=== PATIENT | female | born 1985 ===

== ENCOUNTER 2020-02-28 14:42 | Outpatient (REF) | payer OTHER, SELFPAY | END 2020-02-28 14:43 | disposition home or self-care (01) | LOC: HO.LAB 14:42 | PROVIDERS: PCP Internal Medicine; Visit Provider Internal Medicine | DX: Z20.828 Contact with and (suspected) exposure to other viral communicable diseases (principal) | CPT/HCPCS: 87635 ==

== ENCOUNTER 2020-04-08 11:39 | Outpatient (REF) | payer OTHER, SELFPAY ==
[2020-04-08 14:45] LABS: Free T4 (Free Thyroxine) 0.88 ng/dL (0.71-1.85); Thyroid Stimulating Hormone 0.68 uIU/mL (0.32-4.0)
[2020-04-09 14:47] LABS: Follicle Stimulating Hormone 3.5 mIU/mL
[2020-04-12 22:11] LABS: Estrogen 287.1 pg/mL
[2020-04-15 23:08] LABS: Estradiol Free 1.95 pg/mL; Estradiol, Ultrasensitive 76 pg/mL
== END 2020-04-08 11:40 | disposition home or self-care (01) ==
LOC: HO.10HDL 11:39
PROVIDERS: Visit Provider Internal Medicine Endocrinology, Diabetes & Metabolism
DX: E22.1 Hyperprolactinemia (principal)
CPT/HCPCS: 82670; 82672; 83001; 83002; 84146; 84439; 84443

== ENCOUNTER → 2020-04-17 10:30 | Outpatient (BNVA) | payer OTHER, SELFPAY | PROVIDERS: PCP Internal Medicine; Referring Provider Internal Medicine; Visit Provider Internal Medicine Endocrinology, Diabetes & Metabolism | DX: E22.1 Hyperprolactinemia (principal); E06.3 Autoimmune thyroiditis; E04.2 Nontoxic multinodular goiter; L68.0 Hirsutism; E66.01 Morbid (severe) obesity due to excess calories; Z68.41 Body mass index [BMI] 40.0-44.9, adult; Z71.3 Dietary counseling and surveillance | CPT/HCPCS: 99212 ==

== ENCOUNTER 2020-06-10 08:47 | Outpatient (REF) | payer OTHER, SELFPAY ==
[2020-06-13 05:57] LABS: HPV mRNA E6/E7 rflx Not Detected (Not Detected)
== END 2020-06-10 08:48 | disposition home or self-care (01) ==
LOC: HO.LAB 08:47
PROVIDERS: PCP Internal Medicine; Visit Provider Advanced Practice Midwife
DX: Z01.419 Encounter for gynecological examination (general) (routine) without abnormal findings (principal); E66.01 Morbid (severe) obesity due to excess calories; Z68.39 Body mass index [BMI] 39.0-39.9, adult; Z31.9 Encounter for procreative management, unspecified
CPT/HCPCS: 36415; 87624; 88142

== ENCOUNTER 2020-06-15 14:59 | Emergency (ER) | payer OTHER, SELFPAY ==
[2020-06-15 16:24] VITALS: BP 177/93; PULSE 77; RESP 16; TEMP 36.6; O2SAT 98; BMI 34.3
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
[2020-06-15 20:39] LABS: Glucose Urine UA NEG (NEG); Leukocyte Esterase Urine NEG (NEG); Nitrite Urine NEG (NEG); PH 6.5 (5.0-8.0); Specific Gravity - Urine 1.015 (1.005-1.025); Urine Blood NEG (NEG); Urine Ketones NEG (NEG); Urine Protein NEG (NEG-TRACE)
[2020-06-15 20:40] LABS: Appearance Urine CLEAR; Color Urine YELLOW
[2020-06-15 20:42] LABS: UPreg QC Valid YES; Urine Pregnancy NEGATIVE (NEGATIVE)
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
[2020-06-15 20:50] VITALS: BP 146/85; PULSE 91; RESP 20; TEMP 36.4; O2SAT 97
--- NOTE | 2020-06-15 20:50 | ECG_ITS ---
Test Reason : CHEST PAIN Blood Pressure : / mmHG Vent. Rate : 079 BPM Atrial Rate : 079 BPM P-R Int : 150 ms QRS Dur : 092 ms QT Int : 384 ms P-R-T Axes : 049 018 -07 degrees QTc Int : 440 ms Normal sinus rhythm Moderate voltage criteria for LVH, may be normal variant T wave abnormality, consider inferior ischemia Abnormal ECG When compared with ECG of 22-NOV-2016 15:57, No significant change was found Referred By: Tasneem Bell Electronically Signed By:LUIS ALBERTO MD
[2020-06-15 21:03] LABS: Amphetamine Screen Urine Not Detected (Not Detect); Barbiturates, Urine Not Detected (Not Detect); Benzodiazepines Screen Urine Not Detected (Not Detect); Cannabinoid Screen Urine Not Detected (Not Detect); Cocaine Screen Urine Not Detected (Not Detect); Opiate Screen Urine Not Detected (Not Detect); Phencyclidine Screen Urine Not Detected (Not Detect)
[2020-06-15 21:27] VITALS: PULSE 86
[2020-06-15] MEDS: Acetaminophen 325 MG TABLET 975 MG PO (21:44)
[2020-06-15 22:00] VITALS: BP 138/65; PULSE 91; RESP 20; TEMP 36.4; O2SAT 97
== END 2020-06-15 22:14 | disposition home or self-care (01) ==
PROVIDERS: Physician Assistant; Emergency Provider Emergency Medicine Emergency Medical Services
DX: S06.0X1A Concussion with loss of consciousness of 30 minutes or less, initial encounter (principal); S63.501A Unspecified sprain of right wrist, initial encounter; V47.5XXA Car driver injured in collision with fixed or stationary object in traffic accident, initial encounter; Y93.89 Activity, other specified; Y92.411 Interstate highway as the place of occurrence of the external cause; Y99.9 Unspecified external cause status
CPT/HCPCS: 36415; 70450; 72125; 73110; 80307; 81003; 81025; 93005; 99284; 99285

== ENCOUNTER 2020-06-29 13:48 | Outpatient (REF) | payer OTHER, SELFPAY ==
[2020-06-30 08:14] LABS: BV Int Neg Control Negative (Negative); BV Int Pos Control Positive (Positive)
== END 2020-06-29 13:49 | disposition home or self-care (01) ==
LOC: HO.LNP 13:48
PROVIDERS: Visit Provider Hospitalist
DX: N76.0 Acute vaginitis (principal)
CPT/HCPCS: 87480; 87510; 87660

== ENCOUNTER 2020-07-14 10:34 | Outpatient (REF) | payer OTHER, SELFPAY ==
[2020-07-15 09:10] LABS: BV Int Neg Control Negative (Negative); BV Int Pos Control Positive (Positive)
[2020-07-15 20:37] LABS: C. trachomatis RNA TMA NOT DETECTED (NOT DETECTED); N. gonorrhoeae RNA TMA NOT DETECTED (NOT DETECTED)
== END 2020-07-14 10:35 | disposition home or self-care (01) ==
LOC: HO.LAB 10:34
PROVIDERS: Visit Provider Advanced Practice Midwife
DX: N76.0 Acute vaginitis (principal)
CPT/HCPCS: 36415; 87480; 87491; 87510; 87591; 87660; 99212

== ENCOUNTER 2020-09-09 16:55 | Outpatient (REF) | payer OTHER, SELFPAY ==
[2020-09-09 18:48] LABS: Free T4 (Free Thyroxine) 0.97 ng/dL (0.71-1.85); Thyroid Stimulating Hormone 0.94 uIU/mL (0.32-4.0)
[2020-09-10 03:37] LABS: CT PCR NOT DETECTED (Not Detect.); NG PCR NOT DETECTED (Not Detect.)
[2020-09-10 08:11] LABS: Follicle Stimulating Hormone 7.6 mIU/mL; Lutenizing Hormone 8.7 mIU/mL; Prolactin 3.5 ng/mL
[2020-09-12 22:47] LABS: Estradiol Ultra Sensitive 46 pg/mL
== END 2020-09-09 16:56 | disposition home or self-care (01) ==
LOC: HO.LAB 16:55
PROVIDERS: Absent Provider Advanced Practice Midwife; PCP Internal Medicine; Visit Provider Internal Medicine Endocrinology, Diabetes & Metabolism
DX: N76.0 Acute vaginitis (principal); E22.1 Hyperprolactinemia
CPT/HCPCS: 36415; 82670; 83001; 83002; 84146; 84439; 84443; 87491; 87591

== ENCOUNTER → 2020-09-22 08:32 | Outpatient (BNVA) | payer OTHER, SELFPAY | PROVIDERS: PCP Internal Medicine; Visit Provider Internal Medicine Endocrinology, Diabetes & Metabolism | DX: E06.3 Autoimmune thyroiditis (principal); E04.2 Nontoxic multinodular goiter; L68.0 Hirsutism; E66.01 Morbid (severe) obesity due to excess calories | CPT/HCPCS: 99212 ==

== ENCOUNTER 2020-10-01 14:55 | Outpatient (REF) | payer OTHER, SELFPAY | END 2020-10-01 14:56 | disposition home or self-care (01) | LOC: HO.LNP 14:55 | PROVIDERS: Visit Provider Internal Medicine | DX: R43.9 Unspecified disturbances of smell and taste (principal); Z11.9 Encounter for screening for infectious and parasitic diseases, unspecified; Z20.822 Contact with and (suspected) exposure to COVID-19 | CPT/HCPCS: U0003; U0005 ==

== ENCOUNTER 2020-10-06 13:55 | Outpatient (REF) | payer OTHER, SELFPAY ==
[2020-10-07 13:46] LABS: BV Int Neg Control Negative (Negative); BV Int Pos Control Positive (Positive)
== END 2020-10-06 13:56 | disposition home or self-care (01) ==
LOC: HO.LAB 13:55
PROVIDERS: PCP Internal Medicine; Visit Provider Advanced Practice Midwife
DX: N76.0 Acute vaginitis (principal)
CPT/HCPCS: 81025; 87480; 87510; 87660; 99212

== ENCOUNTER 2020-11-11 08:04 | Outpatient (REF) | payer OTHER, SELFPAY ==
[2020-11-11 11:15] LABS: Free T4 (Free Thyroxine) 1.07 ng/dL (0.71-1.85); Thyroid Stimulating Hormone 0.79 uIU/mL (0.32-4.0)
[2020-11-12 07:51] LABS: Prolactin 8.5 ng/mL
== END 2020-11-11 08:05 | disposition home or self-care (01) ==
LOC: HO.10HDL 08:04
PROVIDERS: Visit Provider Internal Medicine Endocrinology, Diabetes & Metabolism
DX: E22.1 Hyperprolactinemia (principal); E04.2 Nontoxic multinodular goiter
CPT/HCPCS: 36415; 84146; 84439; 84443

== ENCOUNTER → 2020-11-19 08:57 | Outpatient (BNVA) | payer OTHER, SELFPAY | PROVIDERS: PCP Internal Medicine; Visit Provider Internal Medicine Endocrinology, Diabetes & Metabolism ==

== ENCOUNTER 2021-02-25 08:50 | Outpatient (REF) | payer OTHER, SELFPAY ==
[2021-02-25 10:57] LABS: Thyroid Stimulating Hormone 0.79 uIU/mL (0.32-4.0)
[2021-02-26 17:27] LABS: Prolactin 6.9 ng/mL
== END 2021-02-25 08:51 | disposition home or self-care (01) ==
LOC: HO.10HDL 08:50
PROVIDERS: Visit Provider Internal Medicine Endocrinology, Diabetes & Metabolism
DX: E04.2 Nontoxic multinodular goiter (principal); E22.1 Hyperprolactinemia
CPT/HCPCS: 36415; 84146; 84439; 84443

== ENCOUNTER → 2021-03-18 09:00 | Outpatient (BNVA) | payer OTHER, SELFPAY | PROVIDERS: PCP Internal Medicine; Visit Provider Internal Medicine | DX: E06.3 Autoimmune thyroiditis (principal); E22.1 Hyperprolactinemia; E55.9 Vitamin D deficiency, unspecified; L68.0 Hirsutism; Z79.899 Other long term (current) drug therapy | CPT/HCPCS: 99212 ==

== ENCOUNTER 2021-04-06 09:47 | Outpatient (REF) | payer OTHER, SELFPAY ==
--- NOTE | ~2021-04-06 | MR_ITS ---
EXAMINATION: MR BRAIN WITHOUT AND WITH CONTRAST CLINICAL INFORMATION: Hyperprolactinemia. COMPARISON: Brain MRI dated 02/10/2020. TECHNIQUE: Multiplanar, multisequential imaging was obtained without and with intravenous administration of contrast. Intravenous contrast: Gadavist 5 mL. FINDINGS: No abnormal focus of decreased differential enhancement is seen within the pituitary gland. There is some mild asymmetric fullness in the right anterolateral aspect of the pituitary gland with a slightly convex margin superiorly, also evident on the prior study. The infundibulum is midline. The cavernous sinuses opacify symmetrically. The internal carotid artery flow voids are maintained. No diffusion abnormalities are identified to suggest an acute or subacute infarct. The ventricles are normal in size. No mass effect or midline shift is seen. A nonspecific subcentimeter focus of T2 hyperintense signal change in the dorsal right basal ganglia is again visible, though less conspicuous. There is incidental 9 mm homogeneous pineal cyst. No extra-axial fluid collections are noted. The brainstem and cerebellum are normal. On postcontrast imaging, there is no abnormal parenchymal or leptomeningeal enhancement. The craniovertebral junction, marrow signal, and midline structures are normal. The mastoid air cells are well aerated. There is mild posterior right maxillary sinus mucosal thickening. MR/MR head/brain wo/w con IMPRESSION: Stable mild asymmetric soft tissue fullness of the right anterolateral pituitary gland without a discrete visible lesion. The possibility of an underlying microadenoma is not excluded. Nonspecific subcentimeter focus of signal change in the dorsal right basal ganglia, less conspicuous as compared to the prior study. No acute intracranial process.
== END 2021-04-06 09:48 | disposition home or self-care (01) ==
LOC: HO.MRI 09:47
PROVIDERS: Visit Provider Internal Medicine
DX: E22.1 Hyperprolactinemia (principal)
CPT/HCPCS: 70553; A9585

== ENCOUNTER 2021-04-15 10:06 | Outpatient (REF) | payer OTHER, SELFPAY ==
--- NOTE | ~2021-04-15 | XR_ITS ---
EXAMINATION: XR CHEST CLINICAL INFORMATION: J40 - Bronchitis, not specified as acute or chronic COMPARISON: Chest radiographs 05/16/2013 TECHNIQUE: 2 views of the chest were obtained. FINDINGS: The lungs are clear. There is no airspace consolidation or groundglass opacity. No coarsening of the bronchiolar markings appreciated on plain film. The costophrenic sulci are clear. Heart is within limits of normal size. The hilar and mediastinal contours are normal. No acute bony abnormality. XR/XR chest 2V IMPRESSION: Unremarkable examination.
== END 2021-04-15 10:07 | disposition home or self-care (01) ==
LOC: HO.HMGCX 10:06
PROVIDERS: PCP Internal Medicine; Visit Provider Physician Assistant Medical
DX: J40 Bronchitis, not specified as acute or chronic (principal)
CPT/HCPCS: 71046

== ENCOUNTER 2021-04-15 11:05 | Outpatient (REF) | payer OTHER, SELFPAY ==
[2021-04-15 12:11] LABS: Influenza A PCR NEGATIVE (Negative); Influenza B PCR NEGATIVE (Negative); Resp Syncy Virus RNA Qual PCR NEGATIVE (Negative); SARS COV2 PCR INHOUSE NEGATIVE (Negative)
== END 2021-04-15 11:06 | disposition home or self-care (01) ==
LOC: HO.LNP 11:05
PROVIDERS: Visit Provider Physician Assistant Medical
DX: Z20.822 Contact with and (suspected) exposure to COVID-19 (principal); J40 Bronchitis, not specified as acute or chronic
CPT/HCPCS: 0241U

== ENCOUNTER 2021-04-20 08:36 | Outpatient (REF) | payer OTHER, SELFPAY ==
[2021-04-20 09:29] LABS: Anion Gap 14 (12-20); Blood Urea Nitrogen 12 mg/dL (9-16); Calcium 9.3 mg/dL (8.4-10.2); Carbon Dioxide 23 mmol/L (22-29); Chloride 107 mmol/L (96-108); Estimated Glomerular Filt Rate > 60; Glucose Random 83 mg/dL (60-115); Potassium 3.9 mmol/L (3.3-5.1); Sodium 140 mmol/L (135-145)
[2021-04-20 09:33] LABS: Osmolality, Serum 287 mosm/kg (281-305)
[2021-04-20 09:51] LABS: Free T4 (Free Thyroxine) 1.11 ng/dL (0.71-1.85); HCG Quantitative 87 mIU/mL; Thyroid Stimulating Hormone 1.18 uIU/mL (0.32-4.0); Vitamin D 25-OH Total 18.6 ng/mL (>30)
[2021-04-20 10:56] LABS: Cortisol Random 8.7 ug/dL
[2021-04-21 13:55] LABS: Triiodothyronine T3 Total 104 ng/dL (76-181)
[2021-04-21 17:46] LABS: DHEA Sulfate 98 mcg/dL (23-266); Sex Hormone Binding Globulin 23 nmol/L (17-124)
[2021-04-21 21:37] LABS: Adrenocorticotropic Hormone 34 pg/mL (6-50)
[2021-04-22 07:52] LABS: Follicle Stimulating Hormone 2.8 mIU/mL; Lutenizing Hormone 5.1 mIU/mL; Prolactin Undiluted 12.4 ng/mL
[2021-04-23 14:32] LABS: IGF-1 (Somatomedin C) 189 ng/mL (53-331); IGF-1 Z Score (Female) 0.6 SD (-2.0 - +2.0)
[2021-04-24 15:51] LABS: Testosterone, Total 103 ng/dL (2-45)
[2021-04-27 15:52] LABS: Androstenedione 331 ng/dL
[2021-04-29 23:16] LABS: Estradiol Free 5.14 pg/mL; Estradiol, Ultrasensitive 229 pg/mL
== END 2021-04-20 08:37 | disposition home or self-care (01) ==
LOC: HO.10HDL 08:36
PROVIDERS: Visit Provider Internal Medicine
DX: E22.1 Hyperprolactinemia (principal); E55.9 Vitamin D deficiency, unspecified; L68.0 Hirsutism
CPT/HCPCS: 36415; 80048; 82024; 82157; 82306; 82533; 82627; 82670; 82681; 83001; 83002; 83498; 83930; 84146; 84270; 84305; 84402; 84403; 84439; 84443; 84480; 84702

== ENCOUNTER 2021-04-29 17:14 | Outpatient (REF) | payer OTHER, SELFPAY ==
[2021-04-29 18:54] LABS: HCG Quantitative 4257 mIU/mL
== END 2021-04-29 17:15 | disposition home or self-care (01) ==
LOC: HO.LAB 17:14
PROVIDERS: PCP Internal Medicine; Visit Provider Family Medicine
DX: Z33.1 Pregnant state, incidental (principal)
CPT/HCPCS: 36415; 84702

== ENCOUNTER 2021-04-30 08:55 | Emergency (ER) | payer OTHER, SELFPAY ==
--- NOTE | ~2021-04-30 | US_ITS ---
EXAMINATION: US OBSTETRICAL ULTRASOUND CLINICAL INFORMATION: Vaginal bleeding. Positive test. COMPARISON: None. LMP: 02/14/2021. Gestational age by maternal dates is 6 weeks 5 days. Estimated date of delivery by maternal dates is 12/19/2021. TECHNIQUE: Transabdominal and transvaginal first trimester OB ultrasound FINDINGS: The uterus measures 9 x 5 x 5.8 cm in dimension. No focal uterine lesion is seen. There is a uterine gestational sac and yolk sac. Mean sac diameter measures 0.84 cm suggesting gestational age of 5 weeks 3 days. No pole is seen. No subchorionic hemorrhage is seen. The ovaries are normal appearing. The right ovary measures 3.7 x 2.3 x 2.2 cm. Left ovary measures 3.3 x 2.3 x 2.7 cm. There is a small amount of fluid in the pelvis. US/US OB transvaginal IMPRESSION: Intrauterine gestational sac and yolk sac. No pole seen. Mean sac diameter suggests gestational age of 5 weeks 3 days. No subchorionic hemorrhage is seen.
--- NOTE | ~2021-04-30 | US_ITS ---
EXAMINATION: US OBSTETRICAL ULTRASOUND CLINICAL INFORMATION: Vaginal bleeding. Positive test. COMPARISON: None. LMP: 02/14/2021. Gestational age by maternal dates is 6 weeks 5 days. Estimated date of delivery by maternal dates is 12/19/2021. TECHNIQUE: Transabdominal and transvaginal first trimester OB ultrasound FINDINGS: The uterus measures 9 x 5 x 5.8 cm in dimension. No focal uterine lesion is seen. There is a uterine gestational sac and yolk sac. Mean sac diameter measures 0.84 cm suggesting gestational age of 5 weeks 3 days. No pole is seen. No subchorionic hemorrhage is seen. The ovaries are normal appearing. The right ovary measures 3.7 x 2.3 x 2.2 cm. Left ovary measures 3.3 x 2.3 x 2.7 cm. There is a small amount of fluid in the pelvis. US/US OB <= 14 weeks fetus IMPRESSION: Intrauterine gestational sac and yolk sac. No pole seen. Mean sac diameter suggests gestational age of 5 weeks 3 days. No subchorionic hemorrhage is seen.
[2021-04-30 09:02] VITALS: BP 151/87; PULSE 65; RESP 18; TEMP 36.7; O2SAT 100; BMI 40.5
--- NOTE | 2021-04-30 10:05 | ED.PREGNANCY ---
HPI - General Chief complaint: Vaginal Bleeding Stated complaint: Multiple complaints () Time Seen by Provider: 04/30/21 09:32 Source: patient Mode of arrival: ambulatory Limitations: no limitations History of Present Illness HPI Narrative: 35-year-old female with a history of Kevon's, schizophrenia here with reports of some suprapubic pressure with some vaginal bleeding since last evening. Patient tells me she took a test this week at home which was positive. She is [id number]. Her last menstrual cycle was March 14. She sexually active in her and her partner are trying to conceive. She is not on any contraception. She tells me the last after we using the bathroom she wiped and noted some blood on the toilet paper. This continued this morning. Patient denies bleeding requiring a pad or panty liner. She has no abdominal pain or cramping. No back pain, vomiting or fevers or chills. Patient is also complaining of some right-sided neck discomfort which she has had for several weeks. Seen at a walk-in center yesterday and told it was either tension-related or muscular. Patient tells me the pain is still there. Pain is worsened with movement of the head. There was no known injury or trauma. No associated upper extremity weakness or paresthesias. Patient has not had any care Related Data Previous Rx's Medication Instructions Recorded vits no.130-ferrous fum 1 tab PO DAILY #30 tab 10/06/20 27 mg iron-folic acid 800 mcg tablet ( Vitamin) inhalational spacing device (Space #1 ea 01/26/21 Chamber) albuterol sulfate 90 mcg/actuation 2 inh INHALATION Q4-6H PRN #1 ea 03/28/21 breath activated powder inhaler (ProAir RespiClick) diclofenac sodium 1 % topical gel 2 g TOPICAL QID 7 Days #100 g 04/29/21 Allergies Allergy/AdvReac Type Severity Reaction Status Date / Time latex [LATEX] Allergy Mild SWELL Verified 04/30/21 09:02 Review of Systems Review of Systems: Yes all other systems are reviewed and are negative Constitutional: Constitutional: Reports no additional constitutional complaints, Denies body ache(s), Denies chills, Denies fever(s), Denies headache(s) and Denies weakness Eyes: Eyes: Reports no additional eye complaints and Denies change in vision ENT: Reports system reviewed and no additional complaints, except as documented, Denies dizziness, Denies headache(s), Denies nasal congestion, Denies nasal discharge and Reports neck pain Cardiovascular: Cardiovascular: Reports no additional cardiovascular complaints, Denies chest pain, Denies leg edema and Denies dyspnea Respiratory: Respiratory: Reports no additional respiratory complaints, Denies cough and Denies dyspnea Gastrointestinal: Gastrointestinal: Reports no additional gastrointestinal complaints, Denies abdominal pain, Denies diarrhea, Denies nausea and Denies vomiting Genitourinary: Genitourinary: Reports no additional female genitourinary complaints, Reports abnormal vaginal bleeding and Denies urinary incontinence Musculoskeletal: Musculoskeletal: Reports no additional musculoskeletal complaints, Denies back pain, Denies arthralgias, Denies joint swelling, Reports neck pain, Denies numbness and Denies tingling Integumentary/Breasts: Skin/Breast: Reports system reviewed and no additional complaints, except as docu and Denies rash Neurologic: Reports system reviewed and no additional complaints, except as documented, Denies Abnormal speech present, Denies dizziness, Denies headache(s), Denies numbness, Denies tingling and Denies weakness PMFSH Past Medical History Attestation statement: The following information was validated with the patient. Source: old records reviewed and nursing notes reviewed Medical History Kevon's disease Hirsutism Hyperprolactinemia Morbid obesity Non-toxic multinodular goiter Pineal gland cyst Schizophrenia Vitamin D deficiency Surgical History Hx of cornea transplant Family History Family History Father No problems noted. Mother No problems noted. Social History Social History Alcohol intake: unknown Patient Tobacco Use Status: Never used Tobacco Use of substances other than those prescribed or required for medical reasons: No Advance Directives: No Advance Directives Information Provided: No Gender identity: Female Physical Exam Vital Signs: Vital Signs: Last Vital Signs Temp 98.0 F 04/30/21 09:02 Pulse 65 04/30/21 09:02 Resp 18 12/17/21 09:02 BP 151/87 H 04/30/21 09:02 Pulse Ox 100 04/30/21 09:02 BMI result Body Mass Index 40.5 Const: General: cooperative, healthy appearing, comfortable and no acute distress Orientation/consciousness: patient oriented x3 Limitations: no limitations HENMT: Head: Yes normal to inspection Ears: hearing grossly normal bilaterally General nose exam: Normal external nose present Face and sinus: Yes normal facial exam Mouth: Normal oral and palatal mucosa present Throat: Yes posterior oropharynx normal Eyes: General: appearance normal, both eyes and all related structures Pupils: Equal, round and reactive pupils present Neck: Other: Right trapezius tender to palpate. Palpable muscle spasm noted. No swelling, ecchymosis, deformity. No midline tenderness, step-offs. Patient has full range of motion of the neck with no difficulty. Neck: Yes normal visual inspection, Yes no lymphadenopathy and Yes no meningeal signs Chest: Chest palpation & inspection: normal inspection of the chest Resp: Effort & Inspection: normal respiratory effort Auscultation: clear to auscultation bilaterally Cardio: Rate: regular rate Rhythm: regular rhythm Peripheral pulses: Peripheral pulses 2+ throughout GI: Inspection: Yes normal to inspection Palpation (GI): Soft to palpation and nontender Auscultation: normal bowel sounds Back/Spine/Pelvis: Thoracic/Lumbar Spine: thoracic and lumbar spine normal to inspection Skin: General skin exam: no rashes or lesions noted Neuro: General: patient oriented x3, no meningeal signs, no focal motor deficits and normal sensation to monofilament Cranial nerves: Yes Equal, round and reactive pupils present Cognition (Neuro): normal cognition Speech: No Abnormal speech present Gait exam (Neuro): Normal gait present Motor exam (neuro): 5/5 motor strength present throughout Extrem: General: Yes normal to inspection Course Course Course Narrative: 35-year-old female here with multiple complaints. Patient is she took a test at home is week which is positive. Last night she started to have some vaginal bleeding which was noted only after urinating with wiping. This is not associated with any pain. Will require labs, UA, Rh factor. In addition patient is complaining of some atraumatic right-sided neck pain. On exam the patient has pain over the trapezius with palpable spasm beers feels more muscular. Full range of motion with no meningeal signs or lymphadenopathy or neurological deficits. Will treat supportively 1300- IMPRESSION: Intrauterine gestational sac and yolk sac. No pole seen. Mean sac diameter suggests gestational age of 5 weeks 3 days. No subchorionic hemorrhage is seen. Beta quant 5152. Labs and urine are unremarkable. Patient does not need RhoGAM. She has only had spotting while in the emergency department. She has not even required a pad or panty liner. No focal abdominal pain. Low concern for ectopic . Plan for repeat beta quant in 48 hours and follow up with Ob outpatient. Reviewed worrisome signs and symptoms such as severe pain, bleeding and when to return to the emergency department. Comfortable discharge home. MDM - OB/Uterine Contractions Medical Records Attestation: I reviewed the patient's medical records. Lab Data Attestation: I reviewed the patient's lab results. Result diagrams: 04/30/21 10:37 04/30/21 10:37 Labs: Lab Results 04/30/21 04/30/21 04/30/21 Range/Units 09:58 09:58 10:37 WBC (4.8-10.8) X10*3/uL RBC (4.20-5.50) X10*6/uL Hgb (12.0-16.0) g/dl Hct (37.0-47.0) % MCV (80.0-98.0) fL MCH (27.0-33.0) pg MCHC (31.0-35.0) g/dl RDW (11.0-16.0) % Plt Count (160-400) X10*3/uL MPV (9.4-12.3) fL Immature Gran % (Auto) (0.0-0.4) % Neut % (Auto) (45-73) % Lymph % (Auto) (20-40) % Clarke % (Auto) (2-11) % Eos % (Auto) (0-4) % Baso % (Auto) (0-2) % Lymph # (Auto) (1.2-4.9) X10*3/uL Clarke # (Auto) (0.1-1.2) X10*3/uL Eos # (Auto) (0.0-0.4) X10*3/uL Baso # (Auto) (0.0-0.2) X10*3/uL Abs Immat Gran (auto) (0.00-0.03) X10*3/uL Absolute Neuts (auto) (2.0-8.3) x10*3/uL Absolute Nucleated RBC (0.0-0.012) X10*3/uL Nucleated RBC % (auto) (0.0-0.2) /100WBC Sodium 138 (135-145) mmol/L Potassium 4.0 (3.3-5.1) mmol/L Chloride 109 H (96-108) mmol/L Carbon Dioxide 26 (22-29) mmol/L Anion Gap 7 L (12-20) BUN 8 L (9-16) mg/dL Creatinine 0.72 (0.5-1.4) mg/dL Estim Creat Clear Calc 132.7 Estimated GFR > 60 Random Glucose 98 (60-115) mg/dL Calcium 9.0 (8.4-10.2) mg/dL Total Bilirubin 0.7 (0.0-1.0) mg/dL Direct Bilirubin 0.3 (0.0-0.5) mg/dL AST 19 (5-31) U/L ALT 22 (0-31) U/L Alkaline Phosphatase 42 (39-117) U/L Total Protein 6.8 (6.5-8.0) g/dL Albumin 4.0 (3.5-5.0) g/dL Beta HCG, Quant 5152 mIU/mL Urine Color YELLOW Urine Appearance HAZY Urine pH 6.0 (5.0-8.0) Ur Specific [place] >= 1.030 H (1.005-1.025) Urine Protein NEG (NEG-TRACE) MG/DL Urine Glucose (UA) NEG (NEG) MG/DL Urine Ketones NEG (NEG) MG/DL Urine Blood 1+ H (NEG) Urine Nitrite NEG (NEG) Ur Leukocyte Esterase 1+ H (NEG) Urine RBC 0-2 (0) /HPF Urine WBC 10-14 H (0-4) /HPF Ur Squamous Epith Cells 1+ /LPF Urine Bacteria TRACE /LPF Urine Mucus 2+ /LPF Urine Test POSITIVE H (NEGATIVE) Blood Type 04/30/21 04/30/21 Range/Units 10:37 10:37 WBC 4.4 L (4.8-10.8) X10*3/uL RBC 4.62 (4.20-5.50) X10*6/uL Hgb 12.5 (12.0-16.0) g/dl Hct 37.6 (37.0-47.0) % MCV 81.4 (80.0-98.0) fL MCH 27.1 (27.0-33.0) pg MCHC 33.2 (31.0-35.0) g/dl RDW 14.4 (11.0-16.0) % Plt Count 270 (160-400) X10*3/uL MPV 10.5 (9.4-12.3) fL Immature Gran % (Auto) 0.2 (0.0-0.4) % Neut % (Auto) 57.8 (45-73) % Lymph % (Auto) 30.0 (20-40) % Clarke % (Auto) 9.5 (2-11) % Eos % (Auto) 1.8 (0-4) % Baso % (Auto) 0.7 (0-2) % Lymph # (Auto) 1.3 (1.2-4.9) X10*3/uL Clarke # (Auto) 0.4 (0.1-1.2) X10*3/uL Eos # (Auto) 0.1 (0.0-0.4) X10*3/uL Baso # (Auto) 0.0 (0.0-0.2) X10*3/uL Abs Immat Gran (auto) 0.01 (0.00-0.03) X10*3/uL Absolute Neuts (auto) 2.6 (2.0-8.3) x10*3/uL Absolute Nucleated RBC 0.000 (0.0-0.012) X10*3/uL Nucleated RBC % (auto) 0.0 (0.0-0.2) /100WBC Sodium (135-145) mmol/L Potassium (3.3-5.1) mmol/L Chloride (96-108) mmol/L Carbon Dioxide (22-29) mmol/L Anion Gap (12-20) BUN (9-16) mg/dL Creatinine (0.5-1.4) mg/dL Estim Creat Clear Calc Estimated GFR Random Glucose (60-115) mg/dL Calcium (8.4-10.2) mg/dL Total Bilirubin (0.0-1.0) mg/dL Direct Bilirubin (0.0-0.5) mg/dL AST (5-31) U/L ALT (0-31) U/L Alkaline Phosphatase (39-117) U/L Total Protein (6.5-8.0) g/dL Albumin (3.5-5.0) g/dL Beta HCG, Quant mIU/mL Urine Color Urine Appearance Urine pH (5.0-8.0) Ur Specific [place] (1.005-1.025) Urine Protein (NEG-TRACE) MG/DL Urine Glucose (UA) (NEG) MG/DL Urine Ketones (NEG) MG/DL Urine Blood (NEG) Urine Nitrite (NEG) Ur Leukocyte Esterase (NEG) Urine RBC (0) /HPF Urine WBC (0-4) /HPF Ur Squamous Epith Cells /LPF Urine Bacteria /LPF Urine Mucus /LPF Urine Test (NEGATIVE) Blood Type O Positive Imaging Data US: Attestation: I personally reviewed and interpreted this imaging study as follows: Radiologist's impression: FINDINGS: The uterus measures 9 x 5 x 5.8 cm in dimension. No focal uterine lesion is seen. There is a uterine gestational sac and yolk sac. Mean sac diameter measures 0.84 cm suggesting gestational age of 5 weeks 3 days. No pole is seen. No subchorionic hemorrhage is seen. The ovaries are normal appearing. The right ovary measures 3.7 x 2.3 x 2.2 cm. Left ovary measures 3.3 x 2.3 x 2.7 cm. There is a small amount of fluid in the pelvis. US/US OB <= 14 weeks fetus IMPRESSION: Intrauterine gestational sac and yolk sac. No pole seen. Mean sac diameter suggests gestational age of 5 weeks 3 days. No subchorionic hemorrhage is seen. Discharge Plan Discharge Clinical Impression: Threatened miscarriage Patient Disposition: Home, Self-Care Instructions: Threatened Miscarriage (ED) Additional Instructions: Your ultrasound shows parts of the fetus but not all the parts visualized and this is likely due to the early gestational age. However we cannot rule out threatened miscarriage due to the bleeding and ultrasound. You should have your hormone level rechecked on Monday. Call OB on today to get appointment Prescriptions: No Action (DME) Space Chamber Spacer See Rx Instructions .Route Qty: 1 RF: 0 ProAir RespiClick 90 mcg/actuation aerosol powdr breath activated 2 inh inhalation Q4-6H PRN (Reason: shortness of breath or wheezing) Qty: 1 RF: 3 diclofenac sodium 1 % gel 2 g topical QID 7 Days Qty: 100 RF: 0 Vitamin 27 mg iron- 800 mcg tablet 1 tab PO DAILY Qty: 30 RF: 12 Referrals: Ted Moreland MD [Physician] - 2 days
[2021-04-30 10:15] LABS: Appearance Urine HAZY; Color Urine YELLOW; Glucose Urine UA NEG (NEG); Leukocyte Esterase Urine 1+ (NEG); Nitrite Urine NEG (NEG); Specific Gravity - Urine >= 1.030 (1.005-1.025); UACC Culture Trigger YES; UPreg QC Valid YES; Urine Blood 1+ (NEG); Urine Ketones NEG (NEG); Urine Pregnancy POSITIVE (NEGATIVE); Urine Protein NEG (NEG-TRACE)
[2021-04-30 10:34] LABS: Bacteria Urine TRACE /LPF; RBC Urine 0-2 /HPF (0)
[2021-04-30 10:35] LABS: Mucus Urine 2+ /LPF; Squamous Epithelial Cell Urine 1+ /LPF
[2021-04-30 10:42] LABS: MANUAL DIFF FLAG NO
[2021-04-30 10:44] LABS: Basophils Percent Auto 0.7 % (0-2); Eosinophils Absolute Auto 0.1 X10*3/uL (0.0-0.4); Eosinophils Percent Auto 1.8 % (0-4); Hematocrit 37.6 % (37.0-47.0); Hemoglobin 12.5 g/dl (12.0-16.0); Imm Gran Abs Auto 0.01 X10*3/uL (0.00-0.03); Imm Gran Pct Auto 0.2 % (0.0-0.4); Lymphocytes Absolute Auto 1.3 X10*3/uL (1.2-4.9); Mean Corpuscular HGB Conc 33.2 g/dl (31.0-35.0); Mean Corpuscular Hemoglobin 27.1 pg (27.0-33.0); Mean Corpuscular Volume 81.4 fL (80.0-98.0); Mean Platelet Volume 10.5 fL (9.4-12.3); Monocytes Absolute Auto 0.4 X10*3/uL (0.1-1.2); Monocytes Percent Auto 9.5 % (2-11); Neutrophils Absolute Auto 2.6 x10*3/uL (2.0-8.3); Neutrophils Percent Auto 57.8 % (45-73); Platelet Count 270 X10*3/uL (160-400); Red Blood Count 4.62 X10*6/uL (4.20-5.50); Red Cell Distribution Width 14.4 % (11.0-16.0); White Blood Count 4.4 X10*3/uL (4.8-10.8)
[2021-04-30 11:03] LABS: HCG Quantitative 5152 mIU/mL
[2021-04-30 11:06] LABS: Alanine Aminotransferase 22 U/L (0-31); Alkaline Phosphatase 42 U/L (39-117); Anion Gap 7 (12-20); Aspartate Amino Transferase 19 U/L (5-31); Bilirubin Direct 0.3 mg/dL (0.0-0.5); Bilirubin Total 0.7 mg/dL (0.0-1.0); Blood Urea Nitrogen 8 mg/dL (9-16); Carbon Dioxide 26 mmol/L (22-29); Chloride 109 mmol/L (96-108); Creatinine Clr Calc Pharmacy 132.7; Estimated Glomerular Filt Rate > 60; Glucose Random 98 mg/dL (60-115); Sodium 138 mmol/L (135-145); Total Protein 6.8 g/dL (6.5-8.0)
[2021-04-30 13:22] VITALS: BP 142/91; PULSE 71; RESP 16; TEMP 36.8; O2SAT 99
== END 2021-04-30 13:31 | disposition home or self-care (01) ==
PROVIDERS: Nurse Practitioner Family; Emergency Provider Emergency Medicine; PCP Internal Medicine
DX: O20.0 Threatened abortion (principal); Z79.899 Other long term (current) drug therapy
CPT/HCPCS: 36415; 76801; 76817; 80048; 80076; 81001; 81025; 84702; 85025; 86900; 86901; 87086; 99284

== ENCOUNTER 2021-05-03 08:34 | Outpatient (REF) | payer OTHER, SELFPAY ==
[2021-05-03 10:32] LABS: HCG Quantitative 14029 mIU/mL
== END 2021-05-03 08:35 | disposition home or self-care (01) ==
LOC: HO.10HDL 08:34
PROVIDERS: Visit Provider Nurse Practitioner Family
DX: O20.0 Threatened abortion (principal)
CPT/HCPCS: 36415; 84702

== ENCOUNTER 2021-05-04 14:43 | Outpatient (REF) | payer OTHER, SELFPAY ==
[2021-05-05 04:03] LABS: CT PCR NOT DETECTED (Not Detect.); NG PCR NOT DETECTED (Not Detect.)
== END 2021-05-04 14:44 | disposition home or self-care (01) ==
LOC: HO.LAB 14:43
PROVIDERS: PCP Internal Medicine; Visit Provider Obstetrics & Gynecology
DX: Z34.90 Encounter for supervision of normal pregnancy, unspecified, unspecified trimester (principal)
CPT/HCPCS: 87491; 87591; 99212

== ENCOUNTER 2021-05-21 13:25 | Outpatient (REF) | payer OTHER, SELFPAY ==
--- NOTE | ~2021-05-21 | US_ITS ---
EXAMINATION: OBSTETRICAL ULTRASOUND, FIRST TRIMESTER HISTORY: 35-year-old at 9.6 weeks of gestation Size date discrepancy LMP: 03/14/2021 COMPARISON: 04/30/2021 TECHNIQUE: Real time transabdominal imaging with color and M-mode Doppler. FINDINGS: A single, live IUP CRL of 16.2 mm c/w 8.1wks is noted. Heart Rate: 176 beats per minute. Both maternal ovaries are seen and appear normal. GESTATIONAL AGE: 1. GA from LMP: 9.5 wks 2. GA from AUA: 8.1 wks ESTIMATED DATE OF DELIVERY: 1. MANOLO from LMP: 12/19/2021 2. MANOLO from AUA: 12/30/2021 US/US OB <= 14 weeks fetus IMPRESSION: A single live IUP with CRL consistent with 8.1 weeks of gestation Normal ovaries Discussion: The patient was seen and emergency room on April 30 with the vaginal bleeding. Ultrasound at that time showed an intrauterine gestational sac without the embryo. She returns today for follow-up evaluation. Today she informs me that the correct LMP is 03/14/2021 and that her cycle is the approximately 32 days. I informed the patient that based on today's examination, the best MANOLO is 12/30/2021. A follow-up for NT evaluation has been scheduled in 4 weeks. Thank you very much for this referral. Total time 20 minutes. The time spent was devoted to counseling the patient about the disease and diagnosis, coordinating care including reviewing her records, pertinent lab data and studies, as well as discussing diagnostic evaluation and workup, plan therapeutic interventions and future disposition of care. This includes any additional research needed to obtain further information in formulating the plan of care of this patient. This note was generated with a voice recognition program. Please excuse any errors which may have been overlooked during my review of this note. Sometimes these errors may affect the content or meaning of a given sentence.
== END 2021-05-21 13:26 | disposition home or self-care (01) ==
LOC: HO.US 13:25
PROVIDERS: Visit Provider Obstetrics & Gynecology
DX: O26.841 Uterine size-date discrepancy, first trimester (principal); Z3A.09 9 weeks gestation of pregnancy
CPT/HCPCS: 76801

== ENCOUNTER 2021-05-22 07:56 | Emergency (ER) | payer OTHER, SELFPAY ==
[2021-05-22 08:19] VITALS: BP 152/90; PULSE 66; RESP 18; TEMP 36.7; O2SAT 95; BMI 40.5
[2021-05-22 08:38] LABS: Appearance Urine CLEAR; Color Urine YELLOW; Glucose Urine UA NEG (NEG); Leukocyte Esterase Urine NEG (NEG); Nitrite Urine NEG (NEG); Specific Gravity - Urine >= 1.030 (1.005-1.025); UACC Culture Trigger NO; Urine Blood 2+ (NEG); Urine Ketones NEG (NEG); Urine Protein NEG (NEG-TRACE)
[2021-05-22 08:40] LABS: UPreg QC Valid YES; Urine Pregnancy POSITIVE (NEGATIVE)
[2021-05-22 08:49] LABS: Squamous Epithelial Cell Urine 2+ /LPF
--- NOTE | 2021-05-22 11:48 | ED_ITS ---
HPI - Female Genitourinary General Chief complaint: Vaginal Bleeding Stated complaint: Cramping/Bleeding (8 weeks preg) Time Seen by Provider: 05/22/21 11:29 Source: patient Mode of arrival: ambulatory Limitations: no limitations History of Present Illness HPI Narrative: Patient 8 weeks had ultrasound yesterday showed IUP today she comes because as she has some bright red spotting when she wiped no significant abdominal pain no nausea no vomiting no urinary complaints Related Data Previous Rx's Medication Instructions Recorded vits no.130-ferrous fum 1 tab PO DAILY #30 tab 10/06/20 27 mg iron-folic acid 800 mcg tablet ( Vitamin) inhalational spacing device (Space #1 ea 01/26/21 Chamber) albuterol sulfate 90 mcg/actuation 2 inh INHALATION Q4-6H PRN #1 ea 03/28/21 breath activated powder inhaler (ProAir RespiClick) diclofenac sodium 1 % topical gel 2 g TOPICAL QID 7 Days #100 g 04/29/21 Allergies Allergy/AdvReac Type Severity Reaction Status Date / Time latex [LATEX] Allergy Mild SWELL Verified 05/04/21 14:59 Review of Systems Review of Systems: Yes all other systems are reviewed and are negative PMFSH Past Medical History Medical History Kevon's disease Hirsutism Hyperprolactinemia Morbid obesity Non-toxic multinodular goiter Pineal gland cyst Schizophrenia Vitamin D deficiency Surgical History Hx of cornea transplant Family History Family History Father No problems noted. Mother No problems noted. Social History Social History Alcohol intake: unknown Patient Tobacco Use Status: Never used Tobacco Advance Directives: No Advance Directives Information Provided: No Patient : No Gender identity: Female Physical Exam Vital Signs: Vital Signs: Last Vital Signs Temp 98.0 F 05/22/21 08:19 Pulse 66 05/22/21 08:19 Resp 18 05/22/21 08:19 BP 152/90 H 05/22/21 08:19 Pulse Ox 95 05/22/21 08:19 BMI result Body Mass Index 40.5 Appearance: Alert. Oriented X3. No acute distress. ENT: Pharynx normal. Oral Mucosa moist Neck: Normal inspection. Neck supple. CVS: Normal heart rate and rhythm. Pulses normal. Respiratory: No respiratory distress. Equal air entry bilateral, Abdomen: Soft and nontender. Bowel sounds are present, Skin: Skin warm and dry. Normal skin color. Normal skin turgor. Extremities: No lower extremity edema. No calf tenderness Neuro: Oriented X 3. MDM - Female Genitourinary MDM Narrative Medical decision making narrative: Bedside ultrasound showed IUP with heart rate 170 beats per minute will discharge patient home Lab Data Labs: Lab Results 05/22/21 05/22/21 Range/Units 08:28 08:28 Urine Color YELLOW Urine Appearance CLEAR Urine pH 6.0 (5.0-8.0) Ur Specific [place] >= 1.030 H (1.005-1.025) Urine Protein NEG (NEG-TRACE) MG/DL Urine Glucose (UA) NEG (NEG) MG/DL Urine Ketones NEG (NEG) MG/DL Urine Blood 2+ H (NEG) Urine Nitrite NEG (NEG) Ur Leukocyte Esterase NEG (NEG) Urine RBC 5-9 H (0) /HPF Urine WBC 1-4 (0-4) /HPF Ur Squamous Epith Cells 2+ /LPF Urine Bacteria NONE /LPF Urine Test POSITIVE H (NEGATIVE) Discharge Plan Discharge Clinical Impression: Vaginal bleeding affecting early Patient Disposition: Home, Self-Care Instructions: Non-Threatening First Trimester Vaginal Bleed (ED) Additional Instructions: Report to your OBG or ER if increased vaginal bleeding /or with blood clots Prescriptions: No Action (DME) Space Chamber Spacer See Rx Instructions .Route Qty: 1 RF: 0 ProAir RespiClick 90 mcg/actuation aerosol powdr breath activated 2 inh inhalation Q4-6H PRN (Reason: shortness of breath or wheezing) Qty: 1 RF: 3 diclofenac sodium 1 % gel 2 g topical QID 7 Days Qty: 100 RF: 0 Vitamin 27 mg iron- 800 mcg tablet 1 tab PO DAILY Qty: 30 RF: 12
== END 2021-05-22 13:10 | disposition home or self-care (01) ==
PROVIDERS: Emergency Provider Internal Medicine; PCP Internal Medicine
DX: O20.9 Hemorrhage in early pregnancy, unspecified (principal); Z3A.08 8 weeks gestation of pregnancy
CPT/HCPCS: 81001; 81025; 99282

== ENCOUNTER 2021-06-16 12:58 | Outpatient (REF) | payer OTHER, SELFPAY ==
[2021-06-16 14:57] LABS: Free T4 (Free Thyroxine) 0.88 ng/dL (0.71-1.85); Thyroid Stimulating Hormone 0.17 uIU/mL (0.32-4.0)
[2021-06-18 00:42] LABS: Triiodothyronine T3 Total 158 ng/dL (76-181)
[2021-06-18 07:51] LABS: Thyroglobulin Antibodies <1 IU/mL (< or = 1); Thyroid Peroxidase Antibodies 62 IU/mL (<9)
[2021-06-21 07:52] LABS: Thyrotropin Receptor Antibody <1.00 IU/L (<=2.00)
[2021-06-23 16:07] LABS: Thyroid Stimulating Immunoglob <89 % baseline (<140)
== END 2021-06-16 12:59 | disposition home or self-care (01) ==
LOC: HO.10HDL 12:58
PROVIDERS: Visit Provider Internal Medicine
DX: E06.3 Autoimmune thyroiditis (principal)
CPT/HCPCS: 36415; 83520; 84436; 84439; 84443; 84445; 84480; 86376; 86800

== ENCOUNTER → 2021-07-07 14:55 | Outpatient (BNVA) | payer OTHER, SELFPAY | PROVIDERS: PCP Internal Medicine; Visit Provider Internal Medicine | DX: O99.282 Endocrine, nutritional and metabolic diseases complicating pregnancy, second trimester (principal); E22.1 Hyperprolactinemia; E06.3 Autoimmune thyroiditis; L68.0 Hirsutism; O99.342 Other mental disorders complicating pregnancy, second trimester; F20.9 Schizophrenia, unspecified; O99.212 Obesity complicating pregnancy, second trimester; E66.01 Morbid (severe) obesity due to excess calories; Z3A.15 15 weeks gestation of pregnancy; Z88.8 Allergy status to other drugs, medicaments and biological substances; Z91.040 Latex allergy status; Z79.82 Long term (current) use of aspirin; Z79.899 Other long term (current) drug therapy | CPT/HCPCS: 99212 ==

== ENCOUNTER 2021-09-06 08:14 | Outpatient (REF) | payer OTHER, SELFPAY ==
[2021-09-06 11:38] LABS: T4 Thyroxine 7.4 ug/dL (4.5-12.0); Thyroid Stimulating Hormone 0.62 uIU/mL (0.32-4.0)
[2021-09-08 05:06] LABS: Triiodothyronine T3 Total 95 ng/dL (76-181)
== END 2021-09-06 08:15 | disposition home or self-care (01) ==
LOC: HO.10HDL 08:14
PROVIDERS: Visit Provider Internal Medicine
DX: E06.3 Autoimmune thyroiditis (principal)
CPT/HCPCS: 36415; 84436; 84443; 84480

== ENCOUNTER 2021-12-11 07:45 | Outpatient (REF) | payer OTHER, SELFPAY ==
[2021-12-11 09:01] LABS: Anion Gap 15 (12-20); Blood Urea Nitrogen 12 mg/dL (9-16); Carbon Dioxide 20 mmol/L (22-29); Chloride 107 mmol/L (96-108); Estimated Glomerular Filt Rate > 60; Glucose Random 103 mg/dL (60-115); Potassium 4.3 mmol/L (3.3-5.1); Sodium 138 mmol/L (135-145)
[2021-12-11 09:25] LABS: Free T4 (Free Thyroxine) 1.01 ng/dL (0.71-1.85); Thyroid Stimulating Hormone 0.91 uIU/mL (0.32-4.0)
[2021-12-11 09:27] LABS: Osmolality, Serum 285 mosm/kg (281-305)
[2021-12-11 10:44] LABS: Cortisol Random 9.7 ug/dL
[2021-12-13 10:12] LABS: Triiodothyronine T3 Total 115 ng/dL (76-181)
[2021-12-13 21:26] LABS: Adrenocorticotropic Hormone 25 pg/mL (6-50)
[2021-12-15 19:33] LABS: Follicle Stimulating Hormone 3.3 mIU/mL; Lutenizing Hormone 5.4 mIU/mL; Prolactin Undiluted 14.7 ng/mL
[2021-12-16 15:21] LABS: IGF-1 (Somatomedin C) 162 ng/mL (53-331); IGF-1 Z Score (Female) 0.2 SD (-2.0 - +2.0)
[2021-12-16 18:06] LABS: Testosterone, Free 4.5 pg/mL (0.1-6.4); Testosterone, Total 24 ng/dL (2-45)
[2021-12-28 21:02] LABS: Estradiol Free 2.62 pg/mL; Estradiol, Ultrasensitive 152 pg/mL
== END 2021-12-11 07:46 | disposition home or self-care (01) ==
LOC: HO.LAB 07:45
PROVIDERS: PCP Internal Medicine; Visit Provider Internal Medicine
DX: E22.1 Hyperprolactinemia (principal)
CPT/HCPCS: 36415; 80048; 82024; 82533; 82670; 82681; 83001; 83002; 83930; 84146; 84305; 84402; 84403; 84439; 84443; 84480

== ENCOUNTER 2021-12-16 13:58 | Outpatient (REF) | payer OTHER, SELFPAY | END 2021-12-16 13:59 | disposition home or self-care (01) | LOC: HO.LNP 13:58 | PROVIDERS: Visit Provider Nurse Practitioner Family | DX: N89.8 Other specified noninflammatory disorders of vagina (principal) | CPT/HCPCS: 87086; 87147 ==

== ENCOUNTER 2022-01-08 08:15 | Outpatient (REF) | payer OTHER, SELFPAY ==
[2022-01-10 21:05] LABS: Adrenocorticotropic Hormone 27 pg/mL (6-50)
== END 2022-01-08 08:16 | disposition home or self-care (01) ==
LOC: HO.LAB 08:15
PROVIDERS: PCP Internal Medicine; Visit Provider Internal Medicine
DX: E22.1 Hyperprolactinemia (principal)
CPT/HCPCS: 36415; 82024; 82533

== ENCOUNTER 2022-02-25 11:00 | Outpatient (REF) | payer OTHER, SELFPAY ==
--- NOTE | ~2022-02-25 | MR_ITS ---
MR BRAIN WITHOUT AND WITH CONTRAST CLINICAL INFORMATION: Hyperprolactinemia. COMPARISON: MRI brain 04/06/2021. TECHNIQUE: Multiplanar, multisequence MRI of the brain was obtained before and after the intravenous administration of 5 mL of Gadavist. FINDINGS: The pituitary gland exhibits homogenous enhancement without any definite discrete hypoenhancing lesions accounting for artifact. Pituitary bright spot is present and normally positioned. The infundibulum is midline and there is no mass effect on the optic nerve apparatus. The cavernous sinuses are symmetric and normal. A small 4 mm nodular focus of enhancement along the tuberculum sella could reflect a small tuberculum sella meningioma on image 7 of series 10. There is a 0.9 cm pineal gland cyst that abuts the upper tectal plate. No hydrocephalus. There is no pathologic intracranial enhancement. There are a few small foci of T2 signal change within the right cerebral white matter of uncertain clinical significance. No pathologic enhancement intracranially. There is no hydrocephalus, extra-axial surface collection, or herniation. The major flow voids at the skull base are preserved. There is no acute infarct on diffusion-weighted imaging. The cerebellar tonsils are normally positioned. The cerebellum and brainstem are normal. The craniocervical junction is normal. Osseous marrow signal intensity is homogenous. The visualized soft tissues are unremarkable. MR/MR head/brain wo/w con IMPRESSION: - No definite discrete pituitary lesions are identified. There is no sellar/suprasellar mass effect. - A small 4 mm nodular focus of enhancement along the tuberculum sella could reflect a small tuberculum sella meningioma on image 7 of series 10. - There is a 0.9 cm pineal gland cyst that abuts the upper tectal plate. No hydrocephalus. - There are a few small foci of T2 signal change within the right cerebral white matter of uncertain clinical significance.
== END 2022-02-25 11:01 | disposition home or self-care (01) ==
LOC: HO.MRI 11:00
PROVIDERS: Visit Provider Internal Medicine Endocrinology, Diabetes & Metabolism
DX: E22.1 Hyperprolactinemia (principal)
CPT/HCPCS: 70553; A9585

== ENCOUNTER 2022-06-29 09:35 | Outpatient (REF) | payer OTHER, SELFPAY ==
[2022-06-29 11:39] LABS: Cortisol Random 7.8 ug/dL
[2022-06-29 11:40] LABS: Free T4 (Free Thyroxine) 0.87 ng/dL (0.71-1.85); Thyroid Stimulating Hormone 0.51 uIU/mL (0.32-4.0)
[2022-07-01 03:39] LABS: Sex Hormone Binding Globulin 212 nmol/L (17-124)
[2022-07-01 04:02] LABS: Follicle Stimulating Hormone <0.7 mIU/mL; Lutenizing Hormone <0.2 mIU/mL; Prolactin 61.4 ng/mL
[2022-07-05 03:24] LABS: Estradiol Ultra Sensitive 1839 pg/mL
[2022-07-08 16:08] LABS: Testosterone, Free 11.6 pg/mL (0.1-6.4); Testosterone, Total 236 ng/dL (2-45)
== END 2022-06-29 09:36 | disposition home or self-care (01) ==
LOC: HO.10HDL 09:35
PROVIDERS: Visit Provider Internal Medicine
DX: E22.1 Hyperprolactinemia (principal); L68.0 Hirsutism; E06.3 Autoimmune thyroiditis
CPT/HCPCS: 36415; 82533; 82670; 83001; 83002; 84146; 84270; 84402; 84403; 84439; 84443

== ENCOUNTER 2022-07-04 08:11 | Outpatient (REF) | payer OTHER, SELFPAY ==
[2022-07-04 09:07] LABS: Cortisol Random 11.6 ug/dL; Thyroid Stimulating Hormone 0.55 uIU/mL (0.32-4.0)
[2022-07-08 20:03] LABS: Adrenocorticotropic Hormone 15 pg/mL (6-50)
== END 2022-07-04 08:12 | disposition home or self-care (01) ==
LOC: HO.LAB 08:11
PROVIDERS: PCP Internal Medicine; Visit Provider Internal Medicine
DX: E22.1 Hyperprolactinemia (principal); L68.0 Hirsutism; E06.3 Autoimmune thyroiditis
CPT/HCPCS: 36415; 82024; 82533; 84443

== ENCOUNTER → 2022-07-11 14:46 | Outpatient (BNVA) | payer OTHER, SELFPAY | PROVIDERS: PCP Internal Medicine; Visit Provider Internal Medicine | DX: E06.3 Autoimmune thyroiditis (principal); E22.1 Hyperprolactinemia | CPT/HCPCS: 99212 ==

== ENCOUNTER 2023-02-27 08:05 | Outpatient (AMB) | payer OTHER, SELFPAY ==
[2023-02-27 08:16] VITALS: BP 142/84; PULSE 64; O2SAT 97; BMI 38.8
--- NOTE | 2023-02-27 08:16 | A.OFFPC_ITS ---
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 Required: No Accompanied by: Self / Same As Patient Allergies sulfamethoxazole [From Bactrim] Allergy (Intermediate, Verified 02/27/23 08:39) Shortness of Breath trimethoprim [From Bactrim] Allergy (Intermediate, Verified 02/27/23 08:39) Shortness of Breath latex [LATEX] Allergy (Mild, Verified 02/27/23 08:39) SWELL lisinopril Allergy (Mild, Verified 02/27/23 08:39) Unknown Medication List - Last Reconciled 02/27/23 by Dolly Barroso MD budesonide 90 mcg/actuation 1 inh inhalation BID 30 days cariprazine (Vraylar) 4.5 mg PO inhalational spacing device (Space Chamber) As directed to use with inhaler labetalol 100 mg PO BID nifedipine ER tabs PO prednisolone acetate 1% 1 drp ophthalmic (eye) vit no.066-dneq-lcdhl 27 mg iron- 800 mcg ( Vitamin) 1 tab PO DAILY Tobacco use date assessed: 06/29/22 Dental Screening Dental Screen Date: 02/27/23 Did you have a dental visit in the last 12 months?: No Did you have a dental problem in the last 6 months where you did not have access to dental care?: No Was dental information given to patient?: Patient has dentist HPI HPI Comments History of Present Illness Details This is a 37-year-old female with essential hypertension, Kevon's disease, meningioma and schizophrenia that comes today complaining of perioral numbness that started about 4 months ago after she had vaginal delivery. Calcium will be check regarding this matter. Blood pressure borderline normal to elevated today. I will order TSH due to Kevon's disease. Last TSH was normal. She has not require medication. Has meningioma in which last MRI of the brain was February 2022 and has never seen neurosurgeon also was referred. She said she was not able to make it but does not remember why. Have occasional nonspecific headaches. No visual field deficit. No eye pain. No neurological deficit. Schizophrenia stable with medications and this is follow by Psychiatry. [facility] Medical History (Updated 02/27/23 @ 09:59 by Dolly Barroso MD) Kevon's disease Physical exam Early stage of Incidental Pineal gland cyst Vitamin D deficiency Schizophrenia Non-toxic multinodular goiter Morbid obesity Hirsutism Kevon's disease Hyperprolactinemia Surgical History History of cervical cerclage Hx of cornea transplant Family History Father No problems noted. Mother No problems noted. 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 1. Little interest or pleasure in doing things: not at all 2. Feeling down, depressed, or hopeless: not at all 3. Trouble falling or staying asleep, or sleeping too much: not at all 4. Feeling tired or having little energy: not at all 5. Poor appetite or overeating: not at all 6. Feeling bad about yourself - or that you are a failure or have let yourself or your family down: not at all 7. Trouble concentrating on things, such as reading the newspaper or watching television: not at all 8. Moving or speaking so slowly that other people could have noticed. Or the opposite - being so fidgety or restless that you have been moving around a lot more than usual: not at all 9. Thoughts that you would be better off or of hurting yourself in some way: not at all Total score: 0 Depression Screening Interpretation: Negative Depression Screening Done: Yes [id number] - PHQ-9 Billing: Yes Source: Developed by Saray Robles.W. Enrique, Justino Rodriguez and colleagues, with an educational je from [employer]. Thrive Questionnaire Date Thrive assessed: 02/27/23 I am a: Patient What is your living situation today?: I have a steady place to live Within the past 12 months, did the food you bought not last and you didn't have the money to get more?: Never true Within the past 12 months, did you worry whether your food would run out before you got money to buy more?: Never true Do you have trouble paying for medicines?: No Do you have trouble getting transportation to medical appointments?: No Do you have trouble paying your heating and electricity bill?: No Do you have trouble taking care of your child, family member or friend?: No Do you have trouble with day-to-day activities such as bathing, preparing meals, shopping, managing finances, etc.?: No Are you currently unemployed and looking for a job?: No Are you interested in more education?: No Please select the resources that you would like help with: None Currently or been in a relationship where the following occur: no concerns reported AUDIT C Alcohol Use Questionnaire (AUDIT-C) 1. How often do you have a drink containing alcohol?: Never Total Score: 0 MADALYN-7 AMB Questionnaire MADALYN-7 Date MADALYN - 7 assessed: 02/27/23 Feeling nervous, anxious, or on edge: 0 = Not at all Not being able to stop or control worryin = Not at all Worrying too much about different things: 0 = Not at all Trouble relaxin = Not at all Being so restless that it is hard to sit still: 0 = Not at all Becoming easily annoyed or irritable: 0 = Not at all Feeling afraid as if something awful might happen: 0 = Not at all Total MADALYN-7 score (0-4 normal; 5-9 mild; 10-14 moderate; 15-21 severe): 0 Source: Developed by Drs. Cory Montez, Saray Nunez, Justino Rodriguez and colleagues, with an educational je from [employer]. MADALYN-7 Assessment Billing MADALYN-7 Assessment Tool: MADALYN-7 Assessment 50911 Review of Systems Const All systems reviewed & are unremarkable except as noted in HPI and below Eyes Reports no additional complaints, Denies change in vision and Denies other visual disturbances Card Denies chest pain at rest, Denies chest pain with activity, Denies edema, Denies irregular heart rhythm, Denies claudication, Denies dyspnea, Denies dyspnea on exertion, Denies orthopnea, Denies paroxysmal nocturnal dyspnea and Denies slow heart rate Resp Denies cough, Denies dyspnea and Denies dyspnea on exertion GI Denies abdominal pain, Denies change in bowel habits, Denies excessive flatus, Denies nausea and Denies vomiting Denies urinary incontinence, Denies urinary hesitancy and Denies urinary urgency Musc Denies abnormal gait, Denies atrophy, Denies deformity and Denies limited range of motion Skin/Breast Denies bleeding lesions, Denies changing lesions and Denies rash Neuro Denies abnormal gait and Denies lack of coordination Physical exam (Primary Care) Vital Signs: Last Vital Signs Pulse 64 02/27/23 08:16 BP 142/84 H 02/27/23 08:16 Pulse Ox 97 02/27/23 08:16 Oxygen Delivery Method Room Air 02/27/23 08:16 BMI result Body Mass Index 38.8 Tobacco/Smoking Status: Tobacco use Status Tobacco use date assessed 06/29/22 02/27/23 08:24 Patient Tobacco Use Status Never used Tobacco 02/27/23 08:24 e-Cigarette/Vaping Use Never Used 02/27/23 08:24 PHQ-9: PHQ-9 Score PHQ-9: Total score 0 02/27/23 08:42 Depression Screening Interpretation: Negative Thrive Assessment: Date of Thrive Assessment Date Thrive assessed 02/27/23 02/27/23 08:24 Currently or been in a relationship where the following occur: no concerns reported Eyes General: appearance normal, both eyes and all related structures Eyelids: Yes eyelids normal Conjunctivae: conjunctivae normal Neck Neck: Yes normal visual inspection and Yes supple Resp Effort & Inspection: normal respiratory effort Auscultation: clear to auscultation bilaterally Cardio Jugular venous distension: no JVD Rate: regular rate Rhythm: regular rhythm Heart sounds: S1 normal heart sound present and S2 normal heart sound present Extrem General: Yes full ROM Office Procedures Flu Questionnaire Does the patient have a severe egg allergy?: No Immunizations flu vacc [id number] 6mos up(PF) 60 mcg(15 mcgx4)/0.5 mL IM syringe Performing Provider: Dolly Barroso MD [facility] Documented (not given) by: YAAKOV Lam on 02/27/23 08:25 Reason Not Given: Patient Refused Assessment and Plan Assessment & Plan (1) Schizophrenia: Code(s): F20.9 - Schizophrenia, unspecified Plan: Continue Vraylar. Follow-up with psychiatry. (2) Meningioma: Code(s): D32.9 - Benign neoplasm of meninges, unspecified Plan: MRI of the brain ordered. 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 (4) Essential hypertension: Code(s): I10 - Essential (primary) hypertension Plan: Continue labetalol and nifedipine. Blood pressure goal is equal or less than 130/80. Orders: Orders MR head/brain wo con Today D32.9 - Benign neoplasm of meninges, unspecified, E34.8 - Other specified endocrine disorders Influenza [id number] Immunization Today Z23 - Encounter for immunization Thyroid Stimulating Hormone Today E06.3 - Autoimmune thyroiditis Vitamin D 25-OH Total Today E55.9 - Vitamin D deficiency, unspecified Comprehensive Met. Panel Today L68.0 - Hirsutism Coding Level of Care Code Est Pt Level 4 (22064) Diagnoses Schizophrenia F20.9 Meningioma D32.9 Kevon's disease E06.3 Essential hypertension I10 Additional Codes MADALYN-7 Assessment Billing - MADALYN-7 Assessment Tool: MADALYN-7 Assessment 18093 ([id number]) Time Spent (min) 22
== END 2023-02-27 08:50 | disposition home or self-care (01) ==
PROVIDERS: Visit Provider Internal Medicine
DX: F20.9 Schizophrenia, unspecified (principal); D32.9 Benign neoplasm of meninges, unspecified; E06.3 Autoimmune thyroiditis; I10 Essential (primary) hypertension
CPT/HCPCS: 99214

== ENCOUNTER 2023-03-07 08:59 | Outpatient (REF) | payer OTHER, SELFPAY ==
[2023-03-07 12:01] LABS: Alanine Aminotransferase 15 U/L (0-31); Albumin Level 4.3 g/dL (3.5-5.0); Alkaline Phosphatase 49 U/L (39-117); Anion Gap 11 (12-20); Aspartate Amino Transferase 16 U/L (5-31); Bilirubin Total 0.6 mg/dL (0.0-1.0); Blood Urea Nitrogen 10 mg/dL (9-16); Calcium 9.3 mg/dL (8.4-10.2); Carbon Dioxide 25 mmol/L (22-29); Chloride 108 mmol/L (96-108); Estimated Glomerular Filt Rate > 60; Glucose Random 78 mg/dL (60-115); Potassium 3.9 mmol/L (3.3-5.1); Sodium 140 mmol/L (135-145); Total Protein 7.3 g/dL (6.5-8.0)
[2023-03-07 12:07] LABS: Thyroid Stimulating Hormone 0.74 uIU/mL (0.32-4.0); Vitamin D 25-OH Total 26.3 ng/mL (>30)
== END 2023-03-07 09:00 | disposition home or self-care (01) ==
LOC: HO.10HDL 08:59
PROVIDERS: Visit Provider Internal Medicine
DX: L68.0 Hirsutism (principal); E55.9 Vitamin D deficiency, unspecified; E06.3 Autoimmune thyroiditis
CPT/HCPCS: 36415; 80053; 82306; 84443

== ENCOUNTER 2023-03-09 08:40 | Outpatient (AMB) | payer OTHER, SELFPAY ==
[2023-03-09 08:41] VITALS: BP 130/84; PULSE 73; TEMP 36.6; O2SAT 96; BMI 39.2
--- NOTE | 2023-03-09 08:41 | MHC.OFFVIS ---
Intake Vital Signs 03/09/23 08:41 Height 5 ft 4 in Weight 228 lb 2 oz BMI 39.2 BP 130/84 Blood Pressure Location Lt brachial Position Sitting Pulse 73 Pulse Source Pulse Oximeter Temp 97.9 F Temp Source Oral Pulse Oximetry (%) 96 Oxygen Delivery Method Room Air Intake Visit Reasons: EP Cold/Flu Symptoms (masked)Lobby Intake Note: Pt presents to the office today for complaints of cold/flu symptoms. Pt states she is having dark mucous and cold symptoms. Allergies sulfamethoxazole [From Bactrim] Allergy (Intermediate, Verified 03/09/23 08:44) Shortness of Breath trimethoprim [From Bactrim] Allergy (Intermediate, Verified 03/09/23 08:44) Shortness of Breath latex [LATEX] Allergy (Mild, Verified 03/09/23 08:44) SWELL lisinopril Allergy (Mild, Verified 03/09/23 08:44) Unknown HPI HPI Comments History of Present Illness Details 37-year-old female that presents for sinus pressure congestion abnormal sinus discharge times 7 days. Denies fevers chills chest pain shortness of breath. [facility] Medical History Kevon's disease Physical exam Early stage of Incidental Pineal gland cyst Vitamin D deficiency Schizophrenia Non-toxic multinodular goiter Morbid obesity Hirsutism Kevon's disease Hyperprolactinemia Surgical History History of cervical cerclage Hx of cornea transplant Family History Father No problems noted. Mother No problems noted. 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 Current occupational exposures/hazards: No Gender identity: Female Cognitive needs: No Hearing needs: No Vision needs: Yes (glasses) Female Reproductive History Menstrual Age of Menarche: 14 Review of Systems ENT Reports nasal congestion and Reports nasal discharge Physical Exam Vital Signs: Last Vital Signs Temp 97.9 F 03/09/23 08:41 Pulse 73 03/09/23 08:41 BP 130/84 03/09/23 08:41 Pulse Ox 96 03/09/23 08:41 Oxygen Delivery Method Room Air 03/09/23 08:41 BMI result Body Mass Index 39.2 Const General: cooperative, healthy appearing, no acute distress and alert Orientation/consciousness: patient oriented x3 Limitations: no limitations HEENT Other: TTP over the maxillary and frontal sinuses Head: Yes normal to inspection Ears: hearing grossly normal bilaterally General nose exam: Normal external nose present Resp Effort & Inspection: normal respiratory effort and able to speak in complete sentences Cardio Rate: regular rate Skin General skin exam: no rashes or lesions noted Neuro General: patient oriented x3 Extrem General: Yes normal to inspection Assessment & Plan Assessment & Plan (1) Sinusitis: Code(s): J32.9 - Chronic sinusitis, unspecified Qualifiers: Sinusitis location: maxillary Chronicity: acute Recurrence: non-recurrent Qualified Code(s): J01.00 - Acute maxillary sinusitis, unspecified Plan: VSS. Given exam findings tenderness to palpation maxillary sinuses was history of sinus infections start patient Augmentin Discharge instructions, follow up and treatment are discussed with patient in my usual fashion. Alternatives in treatment are also discussed. The patient will return for worsening symptoms or as needed. Advised that any labs/imaging ordered will be followed up on and contact made if further treatment needed. Counseled that patient's condition may require further evaluation and/or treatment. Symptoms of concern for worsening disorder discussed in detail in my customary manner. Patient does verbalize understanding of the plan, there are no apparent barriers to communication. The patient is given the opportunity to ask questions and have them answered to his/her satisfaction Medications: New amoxicillin-pot clavulanate 875-125 mg 1 tab PO BID 14 tabs 0RF 7 days Coding Level of Care Code Est Pt Level 3 (62130) Diagnoses Acute non-recurrent maxillary sinusitis J01.00 Sinusitis location: maxillary Chronicity: acute Recurrence: non-recurrent
== END 2023-03-09 09:05 | disposition home or self-care (01) ==
PROVIDERS: PCP Internal Medicine; Visit Provider Physician Assistant
DX: J01.00 Acute maxillary sinusitis, unspecified (principal)
CPT/HCPCS: 99213

== ENCOUNTER 2023-06-24 08:00 | Outpatient (REF) | payer OTHER, SELFPAY ==
[2023-06-24 10:50] LABS: Free T4 (Free Thyroxine) 0.91 ng/dL (0.71-1.85); Thyroid Stimulating Hormone 0.21 uIU/mL (0.32-4.0)
== END 2023-06-24 08:01 | disposition home or self-care (01) ==
LOC: HO.LAB 08:00
PROVIDERS: PCP Internal Medicine; Visit Provider Internal Medicine Endocrinology, Diabetes & Metabolism
DX: E06.3 Autoimmune thyroiditis (principal)
CPT/HCPCS: 36415; 84439; 84443

== ENCOUNTER 2023-06-29 08:48 | Outpatient (AMB) | payer OTHER, SELFPAY ==
--- NOTE | 2023-06-29 08:49 | A.OFFVIS_ITS ---
Intake Vital Signs 06/29/23 08:50 Height 5 ft 4 in Weight 238 lb 5.115 oz BMI 40.9 BP 116/90 H Blood Pressure Location Lt brachial Position Sitting Pulse 70 Pulse Source Pulse Oximeter Intake Visit Reasons: F/U Hyperprolactinemia Dr Li-confirmed Intake Note: Patient present today for Hyperprolactinemia follow up visit. Patient previously seen by Dr. Li on 07/11/22. Deportation Officer Required: No Accompanied by: Self / Same As Patient Allergies sulfamethoxazole [From Bactrim] Allergy (Intermediate, Verified 06/29/23 08:58) Shortness of Breath trimethoprim [From Bactrim] Allergy (Intermediate, Verified 06/29/23 08:58) Shortness of Breath latex [LATEX] Allergy (Mild, Verified 06/29/23 08:58) SWELL lisinopril Allergy (Mild, Verified 06/29/23 08:58) Unknown Medication List - Last Reconciled 06/29/23 by Cory Whitaker MD budesonide 90 mcg/actuation 1 inh inhalation BID 30 days cariprazine (Vraylar) 4.5 mg PO inhalational spacing device (Space Chamber) As directed to use with inhaler labetalol 100 mg PO BID nifedipine ER tabs PO prednisolone acetate 1% 1 drp ophthalmic (eye) vit no.[id number] 27 mg iron- 800 mcg ( Vitamin) 1 tab PO DAILY Ventolin HFA 90 mcg/actuation (albuterol sulfate) 2 puffs inhalation Q6H PRN 30 days NS HPI HPI Comments History of Present Illness Details 37 YO Female who is seen in F/U for hyperprolactinemia and Destiny's disease. Patient last saw Dr. Li on 07/11/2022. currently 12 wks She has a history of schizophrenia and was previously treated with Haldol as well as Invega, both known to elevate Prolactin. Her Prolactin levels have been elevated since 2018, and have been higher than 100. She was attempting conception, and was started on Cabergoline 0.5 mg twice a week. She then stopped her antipsychotics abruptly, and dose of Cabergoline was able to be decreased to 0.25 twice a week. She then decreased the cabergoline on her own to 0.25 mg once a week. We then stopped her cabergoline, and prolactin levels remained WNL. She then became , but unfortunately miscarried in July of 2021. She had an MRI of the pituitary 03/2021 which revealed no pituitary adenoma, but did reveal a 9 mm pineal cyst. She was referred to Dr. Tellez to review this. She reports feeling well. She denies any headache or visual complaints. She also has a history of destiny's disease, with TSH WNL off any LT4. She had a thyroid US in 2019 which revealed a diffusely heterogenous thyroid gland consistent with Destiny's disease with no true nodules visualized. TPO antibodies are positive. TSH is at goal. MRI Pituitary: 04/06/2021 FINDINGS: No abnormal focus of decreased differential enhancement is seen within the pituitary gland. There is some mild asymmetric fullness in the right anterolateral aspect of the pituitary gland with a slightly convex margin superiorly, also evident on the prior study. The infundibulum is midline. The cavernous sinuses opacify symmetrically. The internal carotid artery flow voids are maintained. No diffusion abnormalities are identified to suggest an acute or subacute infarct. The ventricles are normal in size. No mass effect or midline shift is seen. A nonspecific subcentimeter focus of T2 hyperintense signal change in the dorsal right basal ganglia is again visible, though less conspicuous. There is incidental 9 mm homogeneous pineal cyst. No extra-axial fluid collections are noted. The brainstem and cerebellum are normal. On postcontrast imaging, there is no abnormal parenchymal or leptomeningeal enhancement. The craniovertebral junction, marrow signal, and midline structures are normal. The mastoid air cells are well aerated. There is mild posterior right maxillary sinus mucosal thickening. MR/MR head/brain wo/w con IMPRESSION: Stable mild asymmetric soft tissue fullness of the right anterolateral pituitary gland without a discrete visible lesion. The possibility of an underlying microadenoma is not excluded. ? Nonspecific subcentimeter focus of signal change in the dorsal right basal ganglia, less conspicuous as compared to the prior study. No acute intracranial process. Labs: Laboratory Tests 07/04/22 07/04/22 07/04/22 08:18 08:18 08:18 TSH 0.55 Random Cortisol 11.6 ACTH 15 No loss of vision or headaches [facility] Medical History Destiny's disease Physical exam Early stage of Incidental Pineal gland cyst Vitamin D deficiency Schizophrenia Non-toxic multinodular goiter Morbid obesity Hirsutism Destiny's disease Hyperprolactinemia Surgical History History of cervical cerclage Hx of cornea transplant Family History Father No problems noted. Mother No problems noted. Other Mental health disorder Social History Housing: Apartment Alcohol intake: never Patient Tobacco Use Status: Never used Tobacco e-Cigarette/Vaping Use: Never Used Second Hand Smoke Exposure: No service: No Current occupational status: employed Current occupation: [employer] Current occupational exposures/hazards: No Gender identity: Female Cognitive needs: No Hearing needs: No Vision needs: Yes (glasses) Female Reproductive History Menstrual Age of Menarche: 14 Physical Exam Vital Signs: Last Vital Signs Pulse 70 06/29/23 08:50 BP 116/90 H 06/29/23 08:50 BMI result Body Mass Index 40.9 Const Other: Thyroid gland is normal size weighs about 15 g. There are no thyroid nodules palpated Assessment & Plan Assessment & Plan (1) Hyperprolactinemia: Code(s): E22.1 - Hyperprolactinemia Plan: This is a 37-year-old female with a history of hyperprolactinemia who was on antipsychotic medication. Differential diagnosis includes idiopathic hyperprolactinemia versus antipsychotic induced hyperprolactinemia. Currently and is ovulating normally resulting in Plan is to have patient returned to primary care and OBGYN. There is no reason to recheck prolactin levels during as will be elevated. Would not recheck prolactin levels after unless patient becomes amenorrheic suggesting anovulation. 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 Recent blood work showed suppressed TSH level secondary to current . Plan is to have patient return to primary care and OBGYN. Perhaps a TSH, free T4 and free T3 could be checked the beginning of each trimester by the patient's primary care or OBGYN. As long as free T4 and free T3 remain in normal range, there is no reason for any intervention. The suppressed TSH is due to hyperemesis gravidarum due to excess beta HCG. Patient returned back to endocrinology as needed Coding Level of Care Code Est Pt Level 3 (82268) Diagnoses Hyperprolactinemia E22.1 Destiny's disease E06.3
[2023-06-29 08:50] VITALS: BP 116/90; PULSE 70; BMI 40.9
== END 2023-06-29 10:20 | disposition home or self-care (01) ==
PROVIDERS: PCP Internal Medicine; Visit Provider Internal Medicine Endocrinology, Diabetes & Metabolism
DX: E22.1 Hyperprolactinemia (principal); E06.3 Autoimmune thyroiditis
CPT/HCPCS: 99213

== ENCOUNTER → 2023-06-29 08:48 | Outpatient (BNVA) | payer OTHER, SELFPAY | PROVIDERS: PCP Internal Medicine; Visit Provider Internal Medicine Endocrinology, Diabetes & Metabolism | DX: E22.1 Hyperprolactinemia (principal); E06.3 Autoimmune thyroiditis | CPT/HCPCS: 99212 ==

== ENCOUNTER 2024-02-23 08:00 | Outpatient (AMB) | payer OTHER, SELFPAY ==
[2024-02-23 08:30] VITALS: BP 142/72; PULSE 57; O2SAT 97; BMI 39.6
--- NOTE | 2024-02-23 08:30 | A.OFFPC_ITS ---
Vital Signs 02/23/24 08:30 Height 5 ft 4 in Weight 231 lb BMI 39.6 BP 142/72 H Blood Pressure Location Lt brachial Position Sitting Pulse 57 Pulse Source Pulse Oximeter Pulse Oximetry (%) 97 Oxygen Delivery Method Room Air Intake Visit Reasons: [facility] 02/09 high bp Benefits Counselor Required: No Accompanied by: Self / Same As Patient Allergies sulfamethoxazole [From Bactrim] Allergy (Intermediate, Verified 02/23/24 08:32) Shortness of Breath trimethoprim [From Bactrim] Allergy (Intermediate, Verified 02/23/24 08:32) Shortness of Breath latex [LATEX] Allergy (Mild, Verified 02/23/24 08:32) SWELL lisinopril Allergy (Mild, Verified 02/23/24 08:32) Unknown Tobacco use date assessed: 02/23/24 Dental Screening Dental Screen Date: 02/23/24 Did you have a dental visit in the last 12 months?: No Did you have a dental problem in the last 6 months where you did not have access to dental care?: No Was dental information given to patient?: Patient has dentist HPI HPI Comments History of Present Illness Details 38 y/o female patient who presents to [facility] for HDF. She was admitted at [facility] on 02/09/24 for elevated BP, SOB, and chest tightness. She was discharged home the same day on stable condition. She is 8 weeks post- with previous h/o Preeclampsia on her first . She does h/o HTN and currently taking Labetolol 200 mg TID. She does monitor BPs at home and they all seemed to be elevated. She does still continue to c/o Chest Tightness and dizziness. All testings in the ED negative. [facility] Medical History Kevon's disease Physical exam Early stage of Incidental Pineal gland cyst Vitamin D deficiency Schizophrenia Non-toxic multinodular goiter Morbid obesity Hirsutism Kevon's disease Hyperprolactinemia Surgical History History of cervical cerclage Hx of cornea transplant Family History Father No problems noted. Mother No problems noted. 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 1. Little interest or pleasure in doing things: not at all 2. Feeling down, depressed, or hopeless: not at all 3. Trouble falling or staying asleep, or sleeping too much: not at all 4. Feeling tired or having little energy: not at all 5. Poor appetite or overeating: not at all 6. Feeling bad about yourself - or that you are a failure or have let yourself or your family down: not at all 7. Trouble concentrating on things, such as reading the newspaper or watching television: not at all 8. Moving or speaking so slowly that other people could have noticed. Or the opposite - being so fidgety or restless that you have been moving around a lot more than usual: not at all 9. Thoughts that you would be better off or of hurting yourself in some way: not at all Total score: 0 Depression Screening Interpretation: Negative Depression Screening Done: Yes 03609 - PHQ-9 Billing: Yes Source: Developed by Drs. Cory Montez, Saray Nunez, Justino Rodriguez and colleagues, with an educational je from [employer]. Thrive Questionnaire Date Thrive assessed: 02/23/24 I am a: Patient What is your living situation today?: I have a steady place to live Within the past 12 months, did the food you bought not last and you didn't have the money to get more?: Never true Within the past 12 months, did you worry whether your food would run out before you got money to buy more?: Never true Do you have trouble paying for medicines?: No Do you have trouble getting transportation to medical appointments?: No Do you have trouble paying your heating and electricity bill?: No Do you have trouble taking care of your child, family member or friend?: No Do you have trouble with day-to-day activities such as bathing, preparing meals, shopping, managing finances, etc.?: No Are you currently unemployed and looking for a job?: No Are you interested in more education?: No Please select the resources that you would like help with: None THRIVE Score: 0 AUDIT C Alcohol Use Questionnaire (AUDIT-C) 1. How often do you have a drink containing alcohol?: Never Total Score: 0 MADALYN-7 AMB Questionnaire MADALYN-7 Date MADALYN - 7 assessed: 02/23/24 Feeling nervous, anxious, or on edge: 0 = Not at all Not being able to stop or control worryin = Not at all Worrying too much about different things: 0 = Not at all Trouble relaxin = Not at all Being so restless that it is hard to sit still: 0 = Not at all Becoming easily annoyed or irritable: 0 = Not at all Feeling afraid as if something awful might happen: 0 = Not at all Total MADALYN-7 score (0-4 normal; 5-9 mild; 10-14 moderate; 15-21 severe): 0 Source: Developed by Drs. Cory Montez, Saray Nunez, Justino Rodriguez and colleagues, with an educational je from [employer]. MADALYN-7 Assessment Billing MADALYN-7 Assessment Tool: MADALYN-7 Assessment 20446 Review of Systems Const All systems reviewed & are unremarkable except as noted in HPI and below Physical exam (Primary Care) Vital Signs: Last Vital Signs Pulse 57 02/23/24 08:30 BP 142/72 H 02/23/24 08:30 Pulse Ox 97 02/23/24 08:30 Oxygen Delivery Method Room Air 02/23/24 08:30 BMI result Body Mass Index 39.6 Tobacco/Smoking Status: Tobacco use Status Tobacco use date assessed 02/23/24 02/23/24 08:35 Patient Tobacco Use Status Never used Tobacco 02/23/24 08:35 Tobacco use type Cigarette 02/23/24 08:35 e-Cigarette/Vaping Use Never Used 02/23/24 08:35 Depression Screening Interpretation: Negative Thrive Assessment: Date of Thrive Assessment Date Thrive assessed 02/27/23 02/23/24 08:35 Const General: cooperative and no acute distress Nutritional Appearance: obese Orientation/consciousness: patient oriented x3 Resp Effort & Inspection: normal respiratory effort Auscultation: clear to auscultation bilaterally, no crackles, no rales, no rhonchi and no wheezes Cardio Heart sounds: S1 normal heart sound present and S2 normal heart sound present Neuro General: patient oriented x3, gait normal and moves all extremities Psych Speech and movement: Normal speech and movement present Coding Level of Care Code Est Pt Level 4 (97023) Diagnoses Essential hypertension I10 Additional Codes MADALYN-7 Assessment Billing - MADALYN-7 Assessment Tool: MADALYN-7 Assessment [id number] ([id number]) Time Spent (min) 20 Comment Spent reviewing Hospital notes and Pt education. Assessment & Plan Assessment & Plan (1) Essential hypertension: Code(s): I10 - Essential (primary) hypertension Category: Medical Plan: Ordered HCTZ 25 mg Continue on Labetalol as prescribed. Might consider D/C Labetalol in future Will have Pt RTC in 1-2 weeks for BP check with Nurse Navigator. Medications: New hydrochlorothiazide 25 mg PO DAILY 30 tabs 0RF I10 - Essential (primary) hypertension
== END 2024-02-23 08:48 | disposition home or self-care (01) ==
PROVIDERS: PCP Internal Medicine; Visit Provider Nurse Practitioner Family
DX: I10 Essential (primary) hypertension (principal)

== ENCOUNTER → 2024-02-23 08:00 | Outpatient (BNVA) | payer OTHER, SELFPAY | PROVIDERS: PCP Internal Medicine; Visit Provider Nurse Practitioner Family | DX: I10 Essential (primary) hypertension (principal) | CPT/HCPCS: 96127; 99212 ==

== ENCOUNTER → 2024-02-29 11:43 | Outpatient (BNVA) | payer OTHER, SELFPAY | PROVIDERS: PCP Internal Medicine ==

== ENCOUNTER 2024-09-30 08:18 | Outpatient (AMB) | payer OTHER, SELFPAY ==
--- NOTE | 2024-09-30 08:27 | MHC.PC.OV ---
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: No Accompanied by: Self / Same As Patient Allergies sulfamethoxazole [From Bactrim] Allergy (Intermediate, Verified 09/30/24 08:45) Shortness of Breath trimethoprim [From Bactrim] Allergy (Intermediate, Verified 09/30/24 08:45) Shortness of Breath latex [LATEX] Allergy (Mild, Verified 09/30/24 08:45) SWELL lisinopril Allergy (Mild, Verified 09/30/24 08:45) Unknown Medication List - Last Reconciled 09/30/24 by Dolly Barroso MD budesonide 90 mcg/actuation 1 inh inhalation BID 30 days cariprazine (Vraylar) 4.5 mg PO fluoxetine 20 mg PO DAILY inhalational spacing device (Space Chamber) As directed to use with inhaler labetalol 200 mg PO BID 90 days vit [id number] 27 mg iron- 800 mcg ( Vitamin) 1 tab PO DAILY Ventolin HFA 90 mcg/actuation (albuterol sulfate) 2 puffs inhalation Q6H PRN 30 days NS Tobacco use date assessed: 09/30/24 Dental Screening Dental Screen Date: 09/30/24 Did you have a dental visit in the last 12 months?: No Did you have a dental problem in the last 6 months where you did not have access to dental care?: No Was dental information given to patient?: Patient has dentist HPI HPI Comments History of Present Illness Details The patient is a 39-year-old female presenting with elevated blood pressure that comes for her physical exam. She describes her hypertension management regimen, which includes labetalol 200 mg twice daily. The patient did not take her morning dose and had consumed Sudafed, known to elevate blood pressure, possibly leading to the current readings. 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 The patient's background includes schizophrenia diagnosis managed with specific psychiatric medications, and she has reported allergies to certain substances like Bactrim, latex, and lisinopril. She also has history of meningioma in which last MRI of the brain was 2021. Denies any changes in vision. Has hyperprolactinemia that will be recheck. Last Pap smear was 2020 with HPV negative. She is morbidly obese with a BMI of 41.5 and was advised to do diet and exercise. Complains of nasal congestion and sinus tenderness that has been present for over 3 days. No fever. Declines Tdap vaccine. The patient notes a persistent sinus infection with associated symptoms following a period of cold. Headaches and facial pain have persisted, leading to plans for antibiotic treatment. [facility] Medical History (Updated 09/30/24 @ 09:04 by Dolly Barroso MD) Kevon's disease Physical exam Early stage of Incidental Pineal gland cyst Vitamin D deficiency Schizophrenia Non-toxic multinodular goiter Morbid obesity Hirsutism Kevon's disease Hyperprolactinemia Surgical History History of cervical cerclage Hx of cornea transplant Family History Father No problems noted. Mother No problems noted. 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 1. Little interest or pleasure in doing things: not at all 2. Feeling down, depressed, or hopeless: not at all 3. Trouble falling or staying asleep, or sleeping too much: not at all 4. Feeling tired or having little energy: not at all 5. Poor appetite or overeating: not at all 6. Feeling bad about yourself - or that you are a failure or have let yourself or your family down: not at all 7. Trouble concentrating on things, such as reading the newspaper or watching television: not at all 8. Moving or speaking so slowly that other people could have noticed. Or the opposite - being so fidgety or restless that you have been moving around a lot more than usual: not at all 9. Thoughts that you would be better off or of hurting yourself in some way: not at all Total score: 0 Depression Screening Interpretation: Negative Depression Screening Done: Yes 75241 - PHQ-9 Billing: Yes Source: Developed by Drs. Cory Montez, Saray Nunez, Justino Rodriguez and colleagues, with an educational je from [employer]. Thrive Questionnaire Date Thrive assessed: 09/30/24 I am a: Patient What is your living situation today?: I have a steady place to live Within the past 12 months, did the food you bought not last and you didn't have the money to get more?: I choose not to answer this question Within the past 12 months, did you worry whether your food would run out before you got money to buy more?: I choose not to answer this question Do you have trouble paying for medicines?: No Do you have trouble getting transportation to medical appointments?: No Do you have trouble paying your heating and electricity bill?: No Do you have trouble taking care of your child, family member or friend?: No Do you have trouble with day-to-day activities such as bathing, preparing meals, shopping, managing finances, etc.?: No Are you currently unemployed and looking for a job?: No Are you interested in more education?: No Please select the resources that you would like help with: None Currently or been in a relationship where the following occur: I choose not to answer THRIVE Score: 0 AUDIT C Alcohol Use Questionnaire (AUDIT-C) 1. How often do you have a drink containing alcohol?: Never Total Score: 0 Score Reviewed/Action Taken: No MADALYN-7 AMB Questionnaire MADALYN-7 Date MADALYN - 7 assessed: 09/30/24 Feeling nervous, anxious, or on edge: 0 = Not at all Not being able to stop or control worryin = Not at all Worrying too much about different things: 0 = Not at all Trouble relaxin = Not at all Being so restless that it is hard to sit still: 0 = Not at all Becoming easily annoyed or irritable: 0 = Not at all Feeling afraid as if something awful might happen: 0 = Not at all Total MADALYN-7 score (0-4 normal; 5-9 mild; 10-14 moderate; 15-21 severe): 0 Source: Developed by Drs. Cory Montez, Saray Nunez, Justino Rodriguez and colleagues, with an educational je from [employer]. MADALYN-7 Assessment Billing MADALYN-7 Assessment Tool: MADALYN-7 Assessment 65921 Review of Systems Const All systems reviewed & are unremarkable except as noted in HPI and below Card Denies chest pain at rest, Denies chest pain with activity, Denies edema, Denies irregular heart rhythm, Denies claudication, Denies dyspnea, Denies dyspnea on exertion, Denies orthopnea, Denies paroxysmal nocturnal dyspnea and Denies slow heart rate Resp Denies cough, Denies dyspnea and Denies dyspnea on exertion GI Denies abdominal pain, Denies change in bowel habits, Denies excessive flatus, Denies nausea and Denies vomiting Neuro Denies behavioral changes and Denies lack of coordination Psych Denies behavioral changes Physical exam (Primary Care) Vital Signs: Last Vital Signs BP 146/98 H 09/30/24 08:28 BMI result Body Mass Index 41.5 BMI Assessment/Plan discussion: High BMI High, discussed plan: lifestyle, weight reduction, dietary and physical activity Tobacco/Smoking Status: Tobacco use Status Tobacco use date assessed 09/30/24 09/30/24 08:36 Patient Tobacco Use Status Never used Tobacco 09/30/24 08:36 Tobacco use type 09/30/24 08:36 e-Cigarette/Vaping Use Never Used 09/30/24 08:36 PHQ-9: PHQ-9 Score PHQ-9: Total score 0 09/30/24 08:36 Depression Screening Interpretation: Negative Thrive Assessment: Date of Thrive Assessment Date Thrive assessed 09/30/24 09/30/24 08:36 Currently or been in a relationship where the following occur: I choose not to answer HENNV Head: Yes normal to inspection, Yes normocephalic and Yes atraumatic Ears: external ears normal Eyes General: appearance normal, both eyes and all related structures Eyelids: Yes eyelids normal Conjunctivae: conjunctivae normal Neck Neck: Yes normal visual inspection and Yes supple Resp Effort & Inspection: normal respiratory effort Auscultation: clear to auscultation bilaterally Cardio Jugular venous distension: no JVD Rate: regular rate Rhythm: regular rhythm Heart sounds: S1 normal heart sound present and S2 normal heart sound present GI Inspection: Yes normal to inspection Palpation (GI): Soft to palpation and nontender Auscultation: normal bowel sounds Skin General skin exam: no rashes or lesions noted Neuro General: no focal motor deficits Extrem General: Yes full ROM Psych Appearance: grossly normal Coding Level of Care Code Est Pt Level 4 (04585) Est Pt Prev Care 18-39y(24178) Diagnoses Physical exam Z00.00 Kevon's disease E06.3 Morbid obesity E66.01 Hyperprolactinemia E22.1 Schizophrenia F20.9 History of multiple miscarriages N96 Essential hypertension I10 Acute maxillary sinusitis J01.00 Meningioma D32.9 Additional Codes PHQ-9 - 35475 - PHQ-9 Billing: Yes ([id number]) MADALYN-7 Assessment Billing - MADALYN-7 Assessment Tool: MADALYN-7 Assessment 96500 ([id number]) Time Spent (min) 40 Assessment & Plan Assessment & Plan (1) Physical exam: Code(s): Z00.00 - Encounter for general adult medical examination without abnormal findings Category: Medical (2) Kevon's disease: Code(s): E06.3 - Autoimmune thyroiditis Category: Medical (3) Morbid obesity: Code(s): E66.01 - Morbid (severe) obesity due to excess calories Category: Medical (4) Hyperprolactinemia: Code(s): E22.1 - Hyperprolactinemia Category: Medical (5) Schizophrenia: Code(s): F20.9 - Schizophrenia, unspecified Category: Medical (6) History of multiple miscarriages: Code(s): N96 - Recurrent loss Category: Medical (7) Essential hypertension: Code(s): I10 - Essential (primary) hypertension Category: Medical (8) Acute maxillary sinusitis: Code(s): J01.00 - Acute maxillary sinusitis, unspecified Category: Medical (9) Meningioma: Code(s): D32.9 - Benign neoplasm of meninges, unspecified Category: Medical Plan We emphasized the need for medication adherence in managing hypertension, particularly with labetalol, and discussed the effects of Sudafed. The decision to monitor lupus anticoagulant due to recent miscarriages was made, alongside planned thyroid function testing given the Kevon's history. For the sinus infection, we prescribed antibiotics, and an MRI was ordered to review the meningioma. Health maintenance efforts will include diet and exercise to address obesity, reinforced by planned lab tests to monitor cholesterol and other metabolic parameters. Tetanus immunization is recommended. Patient was informed and verbally consented to the use of an ambient scribe for clinic note documentation during this visit. Orders: Orders Lipid Panel Today E78.5 - Hyperlipidemia, unspecified, I10 - Essential (primary) hypertension Thyroid Stimulating Hormone Today E06.3 - Autoimmune thyroiditis Complete Blood Count Auto Diff Today D64.9 - Anemia, unspecified Lupus Anticoagulant Panel Today N96 - Recurrent loss Comprehensive Enochs. Panel Fast Today I10 - Essential (primary) hypertension MR head/brain wo con Today D32.9 - Benign neoplasm of meninges, unspecified Free T4 (Free Thyroxine) Today E06.3 - Autoimmune thyroiditis Vitamin D 25-OH Total Today E55.9 - Vitamin D deficiency, unspecified Vitamin B12 and Folate Today E53.8 - Deficiency of other specified B group vitamins Medications: New amoxicillin 500 mg PO BID 7 days 14 caps 0RF J01.00 - Acute maxillary sinusitis, unspecified Patient Instructions: - Continue taking labetalol 200 mg twice daily for blood pressure. - Avoid Sudafed as it raises blood pressure. - Follow up in three weeks for a blood pressure check. - Expect lab tests for cholesterol, sugar, thyroid, and organ functions. - Use prescribed antibiotics for sinus symptoms; fill at [facility]. - MRI to be scheduled to check brain angioma. - Pursue weight management through diet and exercise. - Discuss updating your tetanus immunization. - Alert for potential allergies to Bactrim, latex, lisinopril. - Monitor for unusual symptoms and seek help if concerned.
[2024-09-30 08:28] VITALS: BP 146/98; BMI 41.5
== END 2024-09-30 09:13 | disposition home or self-care (01) ==
LOC: HO.HMCH 08:18
PROVIDERS: PCP Internal Medicine; Visit Provider Internal Medicine
DX: Z00.00 Encounter for general adult medical examination without abnormal findings (principal); E66.01 Morbid (severe) obesity due to excess calories; D32.9 Benign neoplasm of meninges, unspecified; F20.9 Schizophrenia, unspecified; Z68.41 Body mass index [BMI] 40.0-44.9, adult; E06.3 Autoimmune thyroiditis; E22.1 Hyperprolactinemia; N96 Recurrent pregnancy loss; I10 Essential (primary) hypertension; J01.00 Acute maxillary sinusitis, unspecified

== ENCOUNTER → 2024-09-30 08:18 | Outpatient (BNVA) | payer OTHER, SELFPAY | PROVIDERS: PCP Internal Medicine; Visit Provider Internal Medicine | DX: Z00.00 Encounter for general adult medical examination without abnormal findings (principal); E06.3 Autoimmune thyroiditis; E66.01 Morbid (severe) obesity due to excess calories; Z68.41 Body mass index [BMI] 40.0-44.9, adult; E22.1 Hyperprolactinemia; F20.9 Schizophrenia, unspecified; N96 Recurrent pregnancy loss; I10 Essential (primary) hypertension; J01.00 Acute maxillary sinusitis, unspecified; D32.9 Benign neoplasm of meninges, unspecified; Z79.899 Other long term (current) drug therapy | CPT/HCPCS: 96127; 99212; 99395 ==

== ENCOUNTER 2024-10-01 07:55 | Outpatient (REF) | payer OTHER, SELFPAY ==
[2024-10-01 08:04] LABS: MANUAL DIFF FLAG NO
[2024-10-01 08:40] LABS: Basophils Percent Auto 0.7 % (0-2); Eosinophils Absolute Auto 0.2 X10*3/uL (0.0-0.4); Eosinophils Percent Auto 4.1 % (0-4); Hematocrit 35.6 % (37.0-47.0); Hemoglobin 11.7 g/dl (12.0-16.0); Imm Gran Abs Auto 0.01 X10*3/uL (0.00-0.03); Imm Gran Pct Auto 0.2 % (0.0-0.4); Lymphocytes Absolute Auto 1.2 X10*3/uL (1.2-4.9); Lymphocytes Percent Auto 30.2 % (20-40); Mean Corpuscular HGB Conc 32.9 g/dl (31.0-35.0); Mean Corpuscular Hemoglobin 24.5 pg (27.0-33.0); Mean Corpuscular Volume 74.6 fL (80.0-98.0); Mean Platelet Volume 10.8 fL (9.4-12.3); Monocytes Absolute Auto 0.4 X10*3/uL (0.1-1.2); Monocytes Percent Auto 9.7 % (2-11); Neutrophils Absolute Auto 2.3 x10*3/uL (2.0-8.3); Neutrophils Percent Auto 55.1 % (45-73); Platelet Count 332 X10*3/uL (160-400); Red Blood Count 4.77 X10*6/uL (4.20-5.50); Red Cell Distribution Width 15.7 % (11.0-16.0); White Blood Count 4.1 X10*3/uL (4.8-10.8)
[2024-10-01 09:29] LABS: Alanine Aminotransferase 15 U/L (0-31); Albumin Level 4.1 g/dL (3.5-5.0); Alkaline Phosphatase 60 U/L (39-117); Anion Gap 12 (12-20); Aspartate Amino Transferase 24 U/L (5-31); Bilirubin Total 0.5 mg/dL (0.0-1.0); Blood Urea Nitrogen 8 mg/dL (9-16); Calcium 8.9 mg/dL (8.4-10.2); Carbon Dioxide 24 mmol/L (22-29); Chloride 107 mmol/L (96-108); Cholesterol 148 mg/dL (<200); Estimated Glomerular Filt Rate > 60; Glucose Fasting 99 mg/dL (60-99); HDL Cholesterol 45 mg/dL (>40); LDL Cholesterol Calculated 83 mg/dL (<100); Potassium 3.9 mmol/L (3.3-5.1); Sodium 139 mmol/L (135-145); Total Protein 7.2 g/dL (6.5-8.0); Triglycerides 104 mg/dL (<150)
[2024-10-01 09:48] LABS: Thyroid Stimulating Hormone 1.04 uIU/mL (0.32-4.0); Vitamin D 25-OH Total 16.9 ng/mL (>30)
[2024-10-01 09:51] LABS: Folate 14.9 ng/mL (> or = 4.0); Vitamin B12 779 pg/mL (200-900)
[2024-10-02 04:54] LABS: Prolactin 20.4 ng/mL
[2024-10-04 07:09] LABS: DRVVT Confirmation Negative (Negative); Hexagonal Phase Neutralization Negative (Negative); PTT (LAC) Screen 56 sec (<=40)
== END 2024-10-01 07:56 | disposition home or self-care (01) ==
LOC: HO.LAB 07:55
PROVIDERS: PCP Internal Medicine; Visit Provider Internal Medicine
DX: D64.9 Anemia, unspecified (principal)
CPT/HCPCS: 36415; 80053; 80061; 82306; 82607; 82746; 84146; 84439; 84443; 85025; 85597; 85598; 85613; 85730

== ENCOUNTER 2024-10-18 08:20 | Outpatient (AMB) | payer OTHER, SELFPAY ==
[2024-10-18 09:11] VITALS: BP 130/90; PULSE 64; RESP 14; TEMP 36.6; O2SAT 97; BMI 41.5
--- NOTE | 2024-10-18 09:11 | AM.OFFWIN_ITS ---
Intake Vital Signs 10/18/24 09:11 Height 5 ft 4 in Weight 242 lb BMI 41.5 BP 130/90 H Blood Pressure Location Rt brachial Position Sitting Respiration 14 Pulse 64 Pulse Source Pulse Oximeter Temp 97.9 F Temp Source Oral Pulse Oximetry (%) 97 Oxygen Delivery Method Room Air Intake Visit Reasons: EP Bump on face, radiating in mouth,glands Intake Note: Pt is here today c/o Lt side of facial red, rash like x4days Patient Tobacco Use Status: Never used Tobacco Allergies sulfamethoxazole [From Bactrim] Allergy (Intermediate, Verified 10/18/24 09:12) Shortness of Breath trimethoprim [From Bactrim] Allergy (Intermediate, Verified 10/18/24 09:12) Shortness of Breath latex [LATEX] Allergy (Mild, Verified 10/18/24 09:12) SWELL lisinopril Allergy (Mild, Verified 10/18/24 09:12) Unknown HPI HPI Comments History of Present Illness Details She presents to office with bump to L side of upper lip Occured approx 4 days ago Unsure if son scratched her or if she got a pimple Has popped it twice Pain radiared to L cheek and hurts in gums and teeth No fever or chills Discomfort is 6/10 She tried tylenol and neadryl to help No nursing [facility] Medical History Kevon's disease Physical exam Early stage of Incidental Pineal gland cyst Vitamin D deficiency Schizophrenia Non-toxic multinodular goiter Morbid obesity Hirsutism Kevon's disease Hyperprolactinemia Surgical History History of cervical cerclage Hx of cornea transplant Family History Father No problems noted. Mother No problems noted. 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 [employer] Current occupational exposures/hazards: No Gender identity: Female Cognitive needs: No Hearing needs: No Vision needs: Yes (glasses) Female Reproductive History Menstrual Age of Menarche: 14 Review of Systems Const Denies chills and Denies fever(s) Eyes Denies change in vision ENT Denies otalgia, Denies nasal congestion, Reports sinus pain, Denies sore throat and Reports other (L side upper lip lesion) Resp Denies cough Skin/Breast Reports erythema Physical Exam Vital Signs: Last Vital Signs Temp 97.9 F 10/18/24 09:11 Pulse 64 10/18/24 09:11 Resp 14 10/18/24 09:11 BP 130/90 H 10/18/24 09:11 Pulse Ox 97 10/18/24 09:11 Oxygen Delivery Method Room Air 10/18/24 09:11 BMI result Body Mass Index 41.5 General: Non-toxic, NAD. Speaking full sentences. Skin: Warm dry throughout L upper lip has one raised, indurated, erythematous bump approx 0.5cm x 0.5cm in size. No head but + small puncture noted in center. No streaking erythema. No fluctuance or drainage. No lesion to inner L upper lip or other oral mucosa Eye: EOMI, PERRL HENT: Airway patent. Uvula midline. No pharyngeal erythema or edema. 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 Bilateral canals clear. TM non-erythematous, non-bulging. No TM perforation or hemotympanum noted. Respiratory: No tachypnea or distress MSK: Full ROM extremities. Neurology: Alert. No aphasia or facial droop. Gait without abnormality Psych: Good mood and affect Assessment & Plan Assessment & Plan (1) Facial abscess: Code(s): L02.01 - Cutaneous abscess of face Plan: moist warm compress BID DOxy as presribed (discussed photosensitivity and take with food) Tylenol prn pain Return if worse Avoid picking Pt gave verbal understanding and had no additional concerns at this time Medications: New doxycycline hyclate 100 mg PO BID 20 tabs 0RF Coding Level of Care Code Est Pt Level 3 (75758) Diagnoses Facial abscess L02.01
== END 2024-10-18 09:37 | disposition home or self-care (01) ==
PROVIDERS: PCP Internal Medicine; Visit Provider Physician Assistant
DX: L02.01 Cutaneous abscess of face (principal)

== ENCOUNTER → 2024-10-18 08:20 | Outpatient (BNVA) | payer OTHER, SELFPAY | PROVIDERS: PCP Internal Medicine; Visit Provider Physician Assistant | DX: L02.01 Cutaneous abscess of face (principal) | CPT/HCPCS: 99212 ==

== ENCOUNTER → 2024-10-26 15:32 | Outpatient (BNV) | payer OTHER, SELFPAY | PROVIDERS: PCP Internal Medicine; Visit Provider Radiology Diagnostic Radiology | DX: E34.8 Other specified endocrine disorders (principal) | CPT/HCPCS: 70553 ==

== ENCOUNTER 2024-10-26 15:33 | Outpatient (REF) | payer OTHER, SELFPAY ==
--- NOTE | ~2024-10-26 | MR_ITS ---
EXAMINATION: MR BRAIN WITHOUT AND WITH CONTRAST CLINICAL INFORMATION: Follow up pineal gland cyst . Hyperprolactinemia. COMPARISON: MRI of brain 02/25/2022 TECHNIQUE: Multiplanar, multisequence MRI of the brain was obtained before and after the intravenous administration of 5 mL of Gadavist. FINDINGS: The pretracheal and is of normal signal and size with normal enhancement throughout the gland. No focal nonenhancing lesion visualized. Normal bright T2 signal seen in the posterior pituitary. The parasellar region is normal. The infundibulum is normal. There is no restricted diffusion to suspect acute ischemic changes. No magnetic susceptibility artifact to suggest acute or chronic hemorrhagic products. There is T2 FLAIR foci in the right frontal lobe deep white matter without enhancement. Normal flow-void signal seen in major cerebral vasculature. There is small 9 mm pineal gland nonenhancing cyst, stable. Previously described 4 mm nodular focus of enhancement along the tubercle sella is not well-visualized on the present exam. MR/MR head/brain wo/w con IMPRESSION: Stable pineal gland cyst. Small nodular focus of enhancement in tuberculum sella on the previous exam is not visualized on the present exam. The sella and parasellar regions appear unremarkable. No acute intracranial process seen. Electronically signed by: Chilo Newberry MD 10/28/2024 07:32 AM EDT
[2024-10-26] MEDS: gadobutroL 10 ML VIAL IVPUSH (16:16)
== END 2024-10-26 15:34 | disposition home or self-care (01) ==
LOC: HO.MRI 15:33
PROVIDERS: PCP Internal Medicine; Visit Provider Internal Medicine
DX: D32.9 Benign neoplasm of meninges, unspecified (principal)
CPT/HCPCS: 70553; A9585

== ENCOUNTER 2024-11-10 09:25 | Outpatient (REF) | payer OTHER, SELFPAY | END 2024-11-10 09:26 | disposition home or self-care (01) | LOC: HO.MRI 09:25 | PROVIDERS: PCP Internal Medicine; Visit Provider Internal Medicine | DX: Z13.89 Encounter for screening for other disorder (principal) ==

== ENCOUNTER 2025-02-11 08:07 | Outpatient (AMB) | payer OTHER, SELFPAY ==
--- NOTE | 2025-02-11 08:13 | MHC.PC.OV ---
Vital Signs 02/11/25 08:14 Height 5 ft 4 in Weight 230 lb BMI 39.5 BP 132/90 H Blood Pressure Location Lt brachial Position Sitting Pulse 62 Pulse Source Pulse Oximeter Temp 97.3 F Temp Source Temporal Artery Scan Pulse Oximetry (%) 98 Oxygen Delivery Method Room Air Intake Visit Reasons: bp, morbid obesity Intake Note: Patient is here to follow up on BP and Morbid Obesity. [employer] Superintendent Required: No Cloth Drier: Not Required per policy Accompanied by: Self / Same As Patient Allergies sulfamethoxazole (From Bactrim) Allergy (Intermediate, Verified 02/11/25 08:35) Shortness of Breath trimethoprim (From Bactrim) Allergy (Intermediate, Verified 02/11/25 08:35) Shortness of Breath latex (LATEX) Allergy (Mild, Verified 02/11/25 08:35) SWELL lisinopril Allergy (Mild, Verified 02/11/25 08:35) Unknown Medication List - Last Reconciled 02/11/25 by Dolly Barroso MD budesonide 90 mcg/actuation 1 inh inhalation BID 30 days cariprazine (Vraylar) 4.5 mg PO fluoxetine 20 mg PO DAILY inhalational spacing device (Space Chamber) As directed to use with inhaler labetalol 200 mg PO BID 90 days vit no.[id number] 27 mg iron- 800 mcg ( Vitamin) 1 tab PO DAILY Ventolin HFA 90 mcg/actuation (albuterol sulfate) 2 puffs inhalation Q6H PRN 30 days NS Tobacco use date assessed: 02/11/25 Dental Screening Dental Screen Date: 09/30/24 HPI HPI Comments History of Present Illness Details The patient is a 39-year-old female presenting with concerns regarding recurrent miscarriages and management of existing medical conditions. The patient has experienced recurrent miscarriages, with the most recent occurring a few weeks ago. She has been evaluated by an RECEPTIONIST NURSE, and there is a suspicion of a clotting disorder, possibly antiphospholipid syndrome, as a contributing factor. Further testing, including cardiolipin antibodies and lupus anticoagulant panel, has been planned to investigate this issue. The patient has a history of Kevon's disease, with the last thyroid function test showing normal results in September. She also has a history of vitamin D deficiency and mild anemia, both of which are being monitored and managed. The patient is currently on multiple medications, including labetalol for blood pressure management, which she did not take today, potentially contributing to her elevated blood pressure during the visit. She is also on fluoxetine and Vraylar for schizophrenia, and vitamins as she is trying to conceive. The patient has a stable pineal gland cyst, which has not changed since the last MRI comparison in 2021. She reports no significant symptoms related to this finding. The patient has allergies to sulfa, latex, and lisinopril, which cause shortness of breath. She also experiences allergic rhinitis, for which Xyzal has been prescribed. [facility] Medical History (Updated 02/11/25 @ 08:51 by Dolly Barroso MD) Kevon's disease Physical exam Early stage of Incidental Pineal gland cyst Vitamin D deficiency Schizophrenia Non-toxic multinodular goiter Morbid obesity Hirsutism Kevon's disease Hyperprolactinemia Surgical History History of cervical cerclage Hx of cornea transplant Family History Father No problems noted. Mother No problems noted. 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 Current occupational exposures/hazards: No Gender identity: Female Cognitive needs: No Hearing needs: No Vision needs: Yes (glasses) Female Reproductive History Menstrual Age of Menarche: 14 Questionnaire Thrive Questionnaire Date Thrive assessed: 09/30/24 I am a: Patient What is your living situation today?: I have a steady place to live Within the past 12 months, did the food you bought not last and you didn't have the money to get more?: I choose not to answer this question Within the past 12 months, did you worry whether your food would run out before you got money to buy more?: I choose not to answer this question Do you have trouble paying for medicines?: No Do you have trouble getting transportation to medical appointments?: No Do you have trouble paying your heating and electricity bill?: No Do you have trouble taking care of your child, family member or friend?: No Do you have trouble with day-to-day activities such as bathing, preparing meals, shopping, managing finances, etc.?: No Are you currently unemployed and looking for a job?: No Are you interested in more education?: No Please select the resources that you would like help with: None Currently or been in a relationship where the following occur: I choose not to answer THRIVE Score: 0 MADALYN-7 AMB Questionnaire MADALYN-7 Date MADALYN - 7 assessed: 09/30/24 Source: Developed by Drs. Cory Montez, Saray Nunez, Justino Rodriguez and colleagues, with an educational je from [employer]. Review of Systems Const All systems reviewed & are unremarkable except as noted in HPI and below Card Denies chest pain at rest, Denies chest pain with activity, Denies edema, Denies irregular heart rhythm, Denies claudication, Denies dyspnea, Denies dyspnea on exertion, Denies orthopnea, Denies paroxysmal nocturnal dyspnea and Denies slow heart rate Resp Denies cough, Denies dyspnea and Denies dyspnea on exertion Physical exam (Primary Care) Vital Signs: Last Vital Signs Temp 97.3 F 02/11/25 08:14 Pulse 62 02/11/25 08:14 BP 132/90 H 02/11/25 08:14 Pulse Ox 98 02/11/25 08:14 Oxygen Delivery Method Room Air 02/11/25 08:14 BMI result Body Mass Index 39.5 BMI Assessment/Plan discussion: High BMI High, discussed plan: lifestyle, weight reduction, dietary and physical activity Tobacco/Smoking Status: Tobacco use Status Tobacco use date assessed 02/11/25 02/11/25 08:19 Patient Tobacco Use Status Never used Tobacco 02/11/25 08:19 Tobacco use type 09/30/24 09:11 e-Cigarette/Vaping Use Never Used 02/11/25 08:19 Thrive Assessment: Date of Thrive Assessment Date Thrive assessed 09/30/24 02/11/25 08:19 Currently or been in a relationship where the following occur: I choose not to answer Resp Effort & Inspection: normal respiratory effort Auscultation: clear to auscultation bilaterally Cardio Jugular venous distension: no JVD Rate: regular rate Rhythm: regular rhythm Heart sounds: S1 normal heart sound present and S2 normal heart sound present Extrem General: Yes full ROM Coding Level of Care Code Est Pt Level 4 (22895) Complex EM visit Add On G2211 Diagnoses Essential hypertension I10 Kevon's disease E06.3 Schizophrenia F20.9 Allergic rhinitis J30.9 History of multiple miscarriages N96 Vitamin D deficiency E55.9 Microcytic anemia D50.9 Time Spent (min) 22 Assessment & Plan Assessment & Plan (1) Essential hypertension: Code(s): I10 - Essential (primary) hypertension Category: Medical (2) Kevon's disease: Code(s): E06.3 - Autoimmune thyroiditis Category: Medical (3) Schizophrenia: Code(s): F20.9 - Schizophrenia, unspecified Category: Medical (4) Allergic rhinitis: Code(s): J30.9 - Allergic rhinitis, unspecified Category: Medical (5) History of multiple miscarriages: Code(s): N96 - Recurrent loss Category: Medical (6) Vitamin D deficiency: Code(s): E55.9 - Vitamin D deficiency, unspecified Category: Medical (7) Microcytic anemia: Code(s): D50.9 - Iron deficiency anemia, unspecified Category: Medical Plan Plan Patient was informed and verbally consented to the use of an ambient scribe for clinic note documentation during this visit. 1. Recurrent Miscarriages The patient has experienced recurrent miscarriages, with the most recent occurring a few weeks ago. Further evaluation by RECEPTIONIST NURSE suggests a possible clotting disorder, such as antiphospholipid syndrome, as a contributing factor. Planned investigations include cardiolipin antibodies and lupus anticoagulant panel to confirm the diagnosis. 2. Kevon's Disease The patient has a history of Kevon's disease, with the last thyroid function test showing normal results in September. A re-evaluation of thyroid function is planned to ensure stability of the condition. 3. Vitamin D Deficiency The patient has a history of vitamin D deficiency, which is being monitored and managed. Reassessment of vitamin D levels is planned to guide further supplementation. 4. Mild Anemia The patient has mild anemia, which was noted in previous lab results. Reevaluation of hemoglobin levels is planned to assess the current status. 5. Pineal Gland Cyst The patient has a stable pineal gland cyst, which has not changed since the last MRI comparison in 2021. No further intervention is required at this time as there are no associated symptoms. 6. Allergic Rhinitis The patient experiences allergic rhinitis, for which Xyzal has been prescribed to manage symptoms. Orders: Orders Cardiolipin Antibodies Today N96 - Recurrent loss Complete Blood Count Auto Diff Today D64.9 - Anemia, unspecified Vitamin D 25-OH Total Today E55.9 - Vitamin D deficiency, unspecified IRON PROFILE Today D64.9 - Anemia, unspecified Lupus Anticoagulant Panel Today N96 - Recurrent loss Thyroid Stimulating Hormone Today E06.3 - Autoimmune thyroiditis Vitamin B12 and Folate Today E53.8 - Deficiency of other specified B group vitamins Medications: New levocetirizine 5 mg PO DAILY 90 tabs 0RF 90 days J30.9 - Allergic rhinitis, unspecified Refilled budesonide 90 mcg/actuation 1 inh inhalation BID 1 ea 2RF 30 days Ventolin HFA 90 mcg/actuation (albuterol sulfate) 2 puffs inhalation Q6H PRN 8 grams 3RF shortness of breath or wheezing 30 days NS
[2025-02-11 08:14] VITALS: BP 132/90; PULSE 62; TEMP 36.3; O2SAT 98; BMI 39.5
--- OUTSIDE RECORDS SUMMARY | 2025-02-11 08:24 | XMS_ITS | Clinical Summary ---
Author Organization [address] [place] [address] [place] [phone] Phone Care Team Providers Care Grease Man Name Role Phone Dolly Barroso MD Primary Care Provider [phone] Allergies Active Allergy Reactions Criticality Noted Date Comments Aspirin Shortness of breath High 11/08/2024 Latex Swelling Medium 11/07/2024 Lisinopril Medium 11/07/2024 Sulfamethoxazole Shortness of breath High 11/07/2024 From Bactrim Trimethoprim Shortness of breath High 11/07/2024 From Bactrim Medications FLUoxetine (PROzac) 20 mg capsule Take 1 capsule (20 mg total) by mouth 1 (one) time each day. Active Ventolin HFA 90 mcg/actuation inhaler inhale 2 puffs every 6 hours as needed for shortness of breath or wheezing 5 Active Vraylar 4.5 mg capsule Take 1 capsule (4.5 mg total) by mouth 1 (one) time each day. 5 Active amoxicillin (AMOXIL) 500 mg capsule Take 1 capsule (500 mg total) by mouth 2 (two) times a day. 7 days 5 Active acetaminophen (TYLENOL) 325 mg tablet TAKE 3 TABLET BY MOUTH EVERY 6 HOURS NEEDED FOR PAIN 4 Active doxycycline hyclate (VIBRA-TABS) 100 mg tablet Take 1 tablet (100 mg total) by mouth 2 (two) times a day. 5 Active fluconazole (DIFLUCAN) 150 mg tablet TAKE 1 TABLET BY MOUTH ONCE, REPEAT IN 3 DAYS 5 Active labetaloL (NORMODYNE) 200 mg tablet Take 1 tablet (200 mg total) by mouth 2 (two) times a day. 5 Active M-Caren Plus 27 mg iron- 1 mg tablet Take 1 tablet by mouth 1 (one) time each day. 5 Active Active Problems Problem Noted Date Diagnosed Date Other specified endocrine disorders 11/08/2024 Assessment & Plan (11/08/2024 2:10 PM EDT): Patient was referred to review MRI with and without contrast 10/26/2024 [facility], stable pineal gland cyst, no sign for pituitary tumor, patient has history of hyperprolactinemia, has not followed up with endocrinology in the last couple years, delivered her daughter December 2023. Patient states she had recent blood work at [facility], they are doing additional brain MRI imaging this coming Monday at [facility]. I will review the blood work and MRI with Dr. Ng. I also asked patient to set up appointment with ophthalmology, I gave her the info for [facility], she will call and see if they take her insurance. We reviewed MRI imaging. I asked her to call with any worsening symptoms, questions or concerns. I will call her with an update after reviewing everything with Dr. Ng. Neck muscle spasm 11/08/2024 Assessment & Plan (11/08/2024 2:11 PM EDT): Patient has history of chronic headaches, it is possible some of her headaches could be occipital neuralgia, has spasm in the trapezius muscles bilaterally. To see if we can alleviate some of her headache issues, I gave her prescription for physical therapy so they can do massage, TENS unit. If she likes the TENS unit and is helping her symptoms, I can prescribe 1 for home use. All questions answered. Encounters Date Type Department Care Team Description 12/02/2024 Telephone Neurosurgery [place] [facility] [address] [place] [address] Nydia Rangel PA from Last 3 Months Surgical History Surgery Date Site/Laterality Comments CORNEAL TRANSPLANT 05/15/2016 - 05/14/2017 Right CERVICAL CERCLAGE N/A 2022 2023 Medical History Medical History Date Comments Kevon's disease Pineal gland cyst Schizophrenia ([facility] V24, [facility] V28) Obesity Vitamin D deficiency Hirsutism Hyperprolactinemia ([facility] V24) Asthma Anemia Social History Tobacco Use Types Packs/Day Years Used Date Smoking Tobacco: Never Passive Smoke Exposure: Never Smokeless Tobacco: Never Comments Unknown Sex and Gender Information Value Date Recorded Sex Assigned at Not on file Legal Sex Female 9:08 PM EST Gender Identity Not on file Sexual Orientation Not on file Obstetrics History Last Filed Vital Signs Vital Sign Reading Time Taken Comments Blood Pressure - - Pulse - - Temperature - - Respiratory Rate - - Oxygen Saturation - - Inhaled Oxygen Concentration - - Weight 110 kg (242 lb) 11/08/2024 9:45 AM EDT Height 162.6 cm (5' 4 ) 11/08/2024 9:45 AM EDT Body Mass Index 41.54 11/08/2024 9:45 AM EDT Plan of Treatment Health Maintenance Due Date Last Done Comments DTaP,Tdap,and Td Vaccines (1 - Tdap) 08/18/2006 Hepatitis B Vaccines (1 of 3 - 19+ 3-dose series) 08/18/2006 Pneumococcal Vaccine: Pediat rics (0 to 5 Years) and At-Risk Patients (6 to 49 Years) (1 of 2 - PCV) 08/18/2006 Cervical Cancer Screening: P ap Smear 08/18/2008 Cholesterol Screening (Lipid Panel) 06/09/2023 HIV Screening 06/09/2023 Hepatitis C Screening 06/09/2023 Social Influencers of Health Screening 06/09/2023 Depression Screening 05/15/2024 Hypertension/CHF/CAD Annual BMP Blood Test 11/08/2024 COVID-19 Vaccine ( - 2023-2 5 season) 2025 Influenza Vaccine (#1) 2025 HIB Vaccines Aged Out No longer eligi ble based on patient's age to complete this topic HPV Vaccines Aged Out No longer eligi ble based on patient's age to complete this topic Hepatitis A Vaccines Aged Out No long er eligible based on patient's age to complete this topic IPV Vaccines Aged Out No longer eligi ble based on patient's age to complete this topic MMR Vaccines Aged Out No longer eligi ble based on patient's age to complete this topic Meningococcal ACWY Vaccine Aged Out N o longer eligible based on patient's age to complete this topic Meningococcal B Vaccine Aged Out No l onger eligible based on patient's age to complete this topic RSV Immunization Patients Un hermelindo 20 months Aged Out No longer eligible b ased on patient's age to complete this topic Varicella Vaccines Aged Out No longer eligible based on patient's age to complete this topic Insurance [facility] Care Teams Grease Man Relationship Specialty Start Date End Date Dolly Barroso MD [address] [place] [address] , [address] [facility] D/B/A: [facility] DENITA Colvin PCP - General 07/06/22
== END 2025-02-11 08:50 | disposition home or self-care (01) ==
LOC: HO.HMCH 08:08
PROVIDERS: PCP Internal Medicine; Visit Provider Internal Medicine
DX: I10 Essential (primary) hypertension (principal); E06.3 Autoimmune thyroiditis; F20.9 Schizophrenia, unspecified; J30.9 Allergic rhinitis, unspecified; N96 Recurrent pregnancy loss; E55.9 Vitamin D deficiency, unspecified; D50.9 Iron deficiency anemia, unspecified

== ENCOUNTER → 2025-02-11 08:07 | Outpatient (BNVA) | payer OTHER, SELFPAY | PROVIDERS: PCP Internal Medicine; Visit Provider Internal Medicine | DX: E66.01 Morbid (severe) obesity due to excess calories (principal); E06.3 Autoimmune thyroiditis; I10 Essential (primary) hypertension; F20.9 Schizophrenia, unspecified; N96 Recurrent pregnancy loss; E55.9 Vitamin D deficiency, unspecified; D50.9 Iron deficiency anemia, unspecified; D64.9 Anemia, unspecified; J30.2 Other seasonal allergic rhinitis; E53.8 Deficiency of other specified B group vitamins; Z68.39 Body mass index [BMI] 39.0-39.9, adult; Z79.899 Other long term (current) drug therapy | CPT/HCPCS: 99212 ==

== ENCOUNTER 2025-02-17 07:53 | Outpatient (REF) | payer OTHER, SELFPAY ==
--- OUTSIDE RECORDS SUMMARY | 2025-02-17 07:57 | XMS_ITS | Clinical Summary ---
Author Organization [address] [place] [address] [place] [phone] Phone Care Team Providers Care Er Manager Name Role Phone Dolly Barroso MD Primary Care Provider [phone] Allergies Active Allergy Reactions Criticality Noted Date [...] 2 (two) times a day. 5 Active M- Plus 27 mg iron- 1 mg tablet Take 1 tablet by mouth 1 (one) time each day. 5 Active Active Problems Problem Noted Date Diagnosed Date Other specified endocrine disorders 11/08/2024 Assessment & Plan (11/08/2024 2:10 PM EDT): Patient was referred to review MRI with and without contrast 10/26/2024 [facility], stable pineal gland cyst, no sign for pituitary tumor, patient has history of hyperprolactinemia, has not followed up with endocrinology in the last couple years, delivered her daughter December 2023. Patient states she had recent blood work at [facility], they are doing additional brain MRI imaging this coming Monday at [facility]. I will review the blood work and MRI with Dr. Ng. I also asked patient to set up appointment with ophthalmology, I gave her the info for [facility], she will call and see [...] Department Care Team Description 12/02/2024 Telephone Neurosurgery [place] [facility] [address] [place] [address] Nydia Rangel PA from Last 3 Months Surgical History Surgery Date Site/Laterality Comments CORNEAL TRANSPLANT 05/15/2016 - 05/14/2017 Right CERVICAL CERCLAGE N/A 2022 2023 Medical History Medical History Date Comments Kevon's disease Pineal gland cyst Schizophrenia ([facility] V24, [facility] V28) Obesity Vitamin D deficiency Hirsutism Hyperprolactinemia ([facility] V24) Asthma Anemia Social History Tobacco Use [...] Cervical Cancer Screening: P ap Smear 08/18/2008 HPV Vaccines (1 - 3-dose SCD M series) 08/18/2014 Cholesterol Screening (Lipid Panel) 06/09/2023 HIV Screening 06/09/2023 Hepatitis C Screening 06/09/2023 Social Influencers of Health Screening 06/09/2023 Depression Screening 05/15/2024 Hypertension/CHF/CAD Annual BMP Blood Test 11/08/2024 COVID-19 Vaccine ( - 2023-2 5 season) 2025 Influenza Vaccine (#1) 2025 RSV Immunization Adult Patie nts (1 - 1-dose 75+ series) 08/18/2062 HIB Vaccines Aged Out No longer eligi [...] patient's age to complete this topic Insurance [facility] [place] [address] Care Teams Er Manager Relationship Specialty Start Date End Date Dolly Barroso MD [address] [place] [address] , [address] Physician Associ D/B/A: [facility] [place], [place] PCP - General 07/06/22
[2025-02-17 08:13] LABS: MANUAL DIFF FLAG NO
[2025-02-17 08:23] LABS: Hematocrit 36.4 % (37.0-47.0); Hemoglobin 12.0 g/dl (12.0-16.0); Imm Gran Abs Auto 0.01 X10*3/uL (0.00-0.03); Imm Gran Pct Auto 0.3 % (0.0-0.4); Lymphocytes Absolute Auto 1.3 X10*3/uL (1.2-4.9); Mean Corpuscular HGB Conc 33.0 g/dl (31.0-35.0); Mean Corpuscular Hemoglobin 25.6 pg (27.0-33.0); Mean Corpuscular Volume 77.6 fL (80.0-98.0); NRBC Abs Auto 0.000 X10*3/uL (0.0-0.012); NRBC Pct Auto 0.0 /100WBC (0.0-0.2); Platelet Count 310 X10*3/uL (160-400); Red Blood Count 4.69 X10*6/uL (4.20-5.50); White Blood Count 3.5 X10*3/uL (4.8-10.8)
[2025-02-17 08:56] LABS: Iron 56 mcg/dL (30-160); Percent Iron Saturation 19 % (15-50); Total Iron Binding Capacity 291 mcg/dL (228-428); Unsaturated Iron Binding 235 ug/dL
[2025-02-17 09:11] LABS: Thyroid Stimulating Hormone 0.96 uIU/mL (0.32-4.0)
[2025-02-17 09:19] LABS: Folate 13.3 ng/mL (> or = 4.0); Vitamin B12 680 pg/mL (200-900)
== END 2025-02-17 07:54 | disposition home or self-care (01) ==
LOC: HO.LAB 07:53
PROVIDERS: Visit Provider Internal Medicine
DX: E53.8 Deficiency of other specified B group vitamins (principal); N96 Recurrent pregnancy loss; E55.9 Vitamin D deficiency, unspecified; D64.9 Anemia, unspecified; E06.3 Autoimmune thyroiditis
CPT/HCPCS: 36415; 82306; 82607; 82746; 83540; 84443; 85025; 85597; 85598; 85613; 85730; 86147